=== PATIENT | female | born 1940 | race Caucasian/White ===

== ENCOUNTER 2017-04-15 08:01 | Emergency (ER) | payer OTHER, MEDICARE ==
[~2017-04-15] VITALS: Ht 154.9 cm; Wt 70.1 kg
[2017-04-15 08:01] VITALS: TEMP 98.2; Ht 154.9 cm; Wt 70.1 kg
[~2017-04-15 08:01] MED LIST: BISA-72 PO; CITA10TA49 PO; CYCL-375 PO; HALO1TAB PO; HYDR-4246 PO; LANS30CA50 PO; LINA145C PO; LISI-127 PO; POLY119P3 PO; SIMV10TA2 PO
--- OUTSIDE RECORDS SUMMARY | 2017-04-15 08:05 | XMS REPORT | Referral Summary ---
Author Author [facility] Organization [facility] Address Unknown Phone Unavailable Care Team Providers Care Arc Trimmer Name Role Phone Isabelle Jaffe Primary Care Physician [phone] Encounter VC Date(s): 04/08/15 - 04/08/15 [facility] [address] [place] [address] Discharge Disposition: 01-Home or Self Care Attending Physician: Juanjose Jaffe MD Admitting Physician: Juanjose Jaffe MD Vital Signs Most recent to 1 oldest [Reference Range]: Blood Pressure 128/60 mmHg [90-140/60-90 mmHg] (04/08/15 9:27 AM) Problem List Condition Effective Dates Status Health Status Informant Arthralgia Active TMJ(Confirmed) Benign essential Active hypertension(Confirm ed) Back pain, Active chronic(Confirmed) Chronic neck Active pain(Confirmed) Constipation(Confirm Active ed) Depression(Confirmed Active ) Lower urinary tract Active symptoms (LUTS)(Confirmed) Schizoaffective Active disorder(Confirmed) Stress Active incontinence(Confirm ed) TMJ Active syndrome(Confirmed) Allergies, Adverse Reactions, Alerts No Known Medication Allergies Medications CeleXA 20 mg oral tablet See Instructions, TAKE ONE TABLET BY MOUTH EVERY DAY, # 90 tabs, eRx: [facility] #[id number], TAKE ONE TABLET BY MOUTH EVERY DAY Start Date: 10/06/15 Status: Ordered cyclobenzaprine 10 mg oral tablet See Instructions, TAKE 1/2 TO 1 TABLET BY MOUTH EVERY 8 HOURS NEEDED, # 60 tabs, eRx: [facility] #[id number], TAKE 1/2 TO 1 TABLET BY MOUTH EVERY 8 HOURS NEEDED Start Date: 09/10/15 Status: Ordered Dulcolax Laxative 10 mg, Oral, Daily, as needed for constipation, 0 Refill(s) Start Date: 06/05/15 Status: Ordered haloperidol 1 mg oral tablet See Instructions, TAKE ONE TABLET BY MOUTH DAILY NEEDED, # 30 tabs, eRx: [facility] #[id number], TAKE ONE TABLET BY MOUTH DAILY NEEDED Start Date: 09/17/15 Status: Ordered lisinopril 10 mg oral tablet See Instructions, TAKE ONE TABLET BY MOUTH AT BEDTIME, # 90 tabs, 1 Refill(s), eRx: [facility] #[id number], TAKE ONE TABLET BY MOUTH AT BEDTIME Start Date: 06/06/15 Status: Ordered MiraLax oral powder for reconstitution See Instructions, DISSOLVE 17 GRAMS IN 8 OUNCES OF LIQUID AND DRINK ONCE DAILY, # 527 unknown unit, eRx: [facility] #[id number], DISSOLVE 17 GRAMS IN 8 OUNCES OF LIQUID AND DRINK ONCE DAILY Start Date: 08/29/15 Status: Ordered Mckee 5 mg-325 mg oral tablet 1-2 tabs, Oral, q8hr, MUST LAST 30 DAYS, # 60 tabs, 0 Refill(s) Start Date: 10/06/15 Status: Ordered Physical therapy Physical therapy, See Instructions, olesya and treat as indicated for back pain., # 1 Each, 0 Refill(s) Start Date: 01/29/15 Status: Ordered Zocor 10 mg oral tablet See Instructions, TAKE ONE TABLET BY MOUTH EVERY EVENING, # 90 tabs, eRx: [facility] #[id number], TAKE ONE TABLET BY MOUTH EVERY EVENING Start Date: 09/26/15 Status: Ordered Results No data available for this section Immunizations Vaccine Date Refusal Reason tetanus/diphth/pertuss (Tdap) adult/adol 06/05/15 pneumococcal 23-polyvalent vaccine 01/16/01 tetanus-diphth toxoids (Td) adult/adol 01/16/01 Procedures Procedure Date Related Diagnosis Body Site Calibration of urethra 06/30/15 Cystoscopy using panendoscope1 06/30/15 Urethral dilatation - female 06/30/15 Cataract extraction2012 Colonoscopy no adenomatous colon polyps 06/01/12 Arthroscopy of knee - right 04/10/08 Chondroplasty - right knee medial and lateral 04/10/08 compartments Excision of fragment of bone - anterior 04/10/08 superior medial eminence, right knee Meniscectomy of right knee - Partial lateral 04/10/08 Meniscectomy of right knee - partial medial 04/10/08 Hysterectomy 1979 1Hydrodistention of bladder, SLT laser. 2Bilateral eyes Social History Social History Type Response Smoking Status Former smoker; Type: Cigarettes Assessment and Plan Extracted from: Title: Ambulatory Patient Education Author: Juanjose Jaffe MD Date: Family Medicine Arterial Hypertension Arterial hypertension (high blood pressure ) is a condition of elevated pressure in your blood vessels. Hypertension over a long period of time is a risk factor for strokes, heart attacks, and heart failure. It is also the leading cause of kidney (renal ) failure. CAUSES In Adults -- Over 90% of all hypertension has no known cause. This is called essential or primary hypertension. In the other 10% of people with hypertension, the increase in blood pressure is caused by another disorder. This is called secondary hypertension . Important causes of secondary hypertension are: Heavy alcohol use. Obstructive sleep apnea. Hyperaldosterosim (Conn's syndrome). Steroid use. Chronic kidney failure. Hyperparathyroidism. Medications. Renal artery stenosis. Pheochromocytoma. Saint Elmo's disease. Coarctation of the aorta. Scleroderma renal crisis. Licorice (in excessive amounts). Drugs (cocaine, methamphetamine). Your caregiver can explain any items above that apply to you. In Children -- Secondary hypertension is more common and should always be considered. -- Few women of childbearing age have high blood pressure. However, up to 10% of them develop hypertension of . Generally, this will not harm the woman. It may be a sign of 3 complications of : preeclampsia, HELLP syndrome, and eclampsia. Follow up and control with medication is necessary. SYMPTOMS This condition normally does not produce any noticeable symptoms. It is usually found during a routine exam. Malignant hypertension is a late problem of high blood pressure. It may have the following symptoms: Headaches. Blurred vision. End-organ damage (this means your kidneys, heart, lungs, and other organs are being damaged). Stressful situations can increase the blood pressure. If a person with normal blood pressure has their blood pressure go up while being seen by their caregiver, this is often termed "white coat hypertension." Its importance is not known. It may be related with eventually developing hypertension or complications of hypertension. Hypertension is often confused with mental tension, stress, and anxiety. DIAGNOSIS The diagnosis is made by 3 separate blood pressure measurements. They are taken at least 1 week apart from each other. If there is organ damage from hypertension, the diagnosis may be made without repeat measurements. Hypertension is usually identified by having blood pressure readings: Above 140/90 mmHg measured in both arms, at 3 separate times, over a couple weeks. Over 130/80 mmHg should be considered a risk factor and may require treatment in patients with diabetes. Blood pressure readings over 120/80 mmHg are called "pre-hypertension" even in non-diabetic patients. To get a true blood pressure measurement, use the following guidelines. Be aware of the factors that can alter blood pressure readings. Take measurements at least 1 hour after caffeine. Take measurements 30 minutes after smoking and without any stress. This is another reason to quit smoking it raises your blood pressure. Use a proper cuff size. Ask your caregiver if you are not sure about your cuff size. Most home blood pressure cuffs are automatic. They will measure systolic and diastolic pressures. The systolic pressure is the pressure reading at the start of sounds. Diastolic pressure is the pressure at which the sounds disappear. If you are elderly, measure pressures in multiple postures. Try sitting, lying or standing. Sit at rest for a minimum of 5 minutes before taking measurements. You should not be on any medications like decongestants. These are found in many cold medications. Record your blood pressure readings and review them with your caregiver. If you have hypertension: Your caregiver may do tests to be sure you do not have secondary hypertension (see "causes" above). Your caregiver may also look for signs of metabolic syndrome. This is also called Syndrome X or Insulin Resistance Syndrome. You may have this syndrome if you have type 2 diabetes, abdominal obesity, and abnormal blood lipids in addition to hypertension. Your caregiver will take your medical and family history and perform a physical exam. Diagnostic tests may include blood tests (for glucose, cholesterol, potassium, and kidney function), a urinalysis, or an EKG. Other tests may also be necessary depending on your condition. PREVENTION There are important lifestyle issues that you can adopt to reduce your chance of developing hypertension: Maintain a normal weight. Limit the amount of salt (sodium ) in your diet. Exercise often. Limit alcohol intake. Get enough potassium in your diet. Discuss specific advice with your caregiver. Follow a DASH diet (dietary approaches to stop hypertension). This diet is rich in fruits, vegetables, and low-fat dairy products, and avoids certain fats. PROGNOSIS Essential hypertension cannot be cured. Lifestyle changes and medical treatment can lower blood pressure and reduce complications. The prognosis of secondary hypertension depends on the underlying cause. Many people whose hypertension is controlled with medicine or lifestyle changes can live a normal, healthy life. RISKS AND COMPLICATIONS While high blood pressure alone is not an illness, it often requires treatment due to its short- and long-term effects on many organs. Hypertension increases your risk for: CVAs or strokes (cerebrovascular accident ). Heart failure due to chronically high blood pressure (hypertensive cardiomyopathy ). Heart attack (myocardial infarction ). Damage to the retina (hypertensive retinopathy ). Kidney failure (hypertensive nephropathy ). Your caregiver can explain list items above that apply to you. Treatment of hypertension can significantly reduce the risk of complications. TREATMENT For overweight patients, weight loss and regular exercise are recommended. Physical fitness lowers blood pressure. Mild hypertension is usually treated with diet and exercise. A diet rich in fruits and vegetables, fat-free dairy products, and foods low in fat and salt (sodium ) can help lower blood pressure. Decreasing salt intake decreases blood pressure in a 1/3 of people. Stop smoking if you are a smoker. The steps above are highly effective in reducing blood pressure. While these actions are easy to suggest, they are difficult to achieve. Most patients with moderate or severe hypertension end up requiring medications to bring their blood pressure down to a normal level. There are several classes of medications for treatment. Blood pressure pills (antihypertensives ) will lower blood pressure by their different actions. Lowering the blood pressure by 10 mmHg may decrease the risk of complications by as much as 25%. The goal of treatment is effective blood pressure control. This will reduce your risk for complications. Your caregiver will help you determine the best treatment for you according to your lifestyle. What is excellent treatment for one person, may not be for you. HOME CARE INSTRUCTIONS Do not smoke. Follow the lifestyle changes outlined in the "Prevention" section. If you are on medications, follow the directions carefully. Blood pressure medications must be taken as prescribed. Skipping doses reduces their benefit. It also puts you at risk for problems. Follow up with your caregiver, as directed. If you are asked to monitor your blood pressure at home, follow the guidelines in the "Diagnosis" section above. SEEK MEDICAL CARE IF: You think you are having medication side effects. You have recurrent headaches or lightheadedness. You have swelling in your ankles. You have trouble with your vision. SEEK IMMEDIATE MEDICAL CARE IF: You have sudden onset of chest pain or pressure, difficulty breathing, or other symptoms of a heart attack. You have a severe headache. You have symptoms of a stroke (such as sudden weakness, difficulty speaking , difficulty walking). MAKE SURE YOU: Understand these instructions. Will watch your condition. Will get help right away if you are not doing well or get worse. Document Released: 11/07/2006 Document Revised: 01/29/2013 Document Reviewed: [facility] Patient Information 2014 [employer] [facility]. No follow up information was provided. Extracted from: Title: Office Visit Note Author: Juanjose Jaffe MD Date: 04/08/15 Assessment/Plan Acute URI Zpack and prednisone 20mg po daily for five days was given. Benign essential hypertension This issue is stable and appropriate refills, lab, and f/u have been discussed. The patient reports their blood pressure has been stable at home and is not having any significant or related problems. There has been no chest pain, chest pressure, soa/serrano. Cough Phenw/cod. May cause sedation. Depression This issue is stable and appropriate refills, lab, and f/u have been discussed. Resume consistent celexa. Schizoaffective disorder Resume haldol 1mg1/2 tab daily and call report. To PV if needed.
--- OUTSIDE RECORDS SUMMARY | 2017-04-15 08:05 | XMS REPORT | Referral Summary ---
Author Author [facility] Organization [facility] Address Unknown Phone Unavailable Care Team Providers Care Ion Implant Machine Operator Name Role Phone Isabelle Jaffe Primary Care Physician [phone] Encounter VC Date(s): 08/12/15 - 08/12/15 [facility] [address] [place] [address] [place] [id number] Discharge Diagnosis: Chronic trigonitis. Discharge Disposition: 01-Home or Self Care Attending Physician: Luis Angel Murillo JR, MD Admitting Physician: Luis Angel Murillo JR, MD Referring Physician: Juanjose Jaffe MD Vital Signs Most recent to 1 oldest [Reference Range]: Peripheral Pulse 80 bpm Rate [60-100 bpm] (08/12/15 1:38 PM) Blood Pressure 128/78 mmHg [90-140/60-90 mmHg] (08/12/15 1:38 PM) Problem List Condition Effective Dates Status Health Status Informant Arthralgia Active TMJ(Confirmed) Benign essential Active hypertension(Confirm ed) Back pain, Active chronic(Confirmed) Chronic kidney Active disease (CKD) stage G1/A1, glomerular filtration rate (GFR) equal to or greater than 90 mL/min/1.73 square meter and albuminuria creatinine ratio less than 30 mg/g(Confirmed) Chronic neck Active pain(Confirmed) Constipation(Confirm Active ed) Depression(Confirmed Active ) Lower urinary tract Active symptoms (LUTS)(Confirmed) Schizoaffective Active disorder(Confirmed) Stress Active incontinence(Confirm ed) TMJ Active syndrome(Confirmed) Allergies, Adverse Reactions, Alerts No Known Medication Allergies Medications CeleXA 20 mg oral tablet 20 mg 1 tabs, Oral, Daily, X 90 days, # 90 tabs, 1 Refill(s), Pharmacy: [facility] #[id number], 1 tabs Oral Daily,x90 days Start Date: 02/19/16 Stop Date: 08/17/16 Status: Ordered cyclobenzaprine 10 mg oral tablet See Instructions, TAKE 1/2 TO 1 TABLET BY MOUTH EVERY 8 HOURS NEEDED, # 60 tabs, 1 Refill(s), Pharmacy: [facility] #[id number], TAKE 1/2 TO 1 TABLET BY MOUTH EVERY 8 HOURS NEEDED Start Date: 02/19/16 Status: Ordered Dulcolax Laxative 10 mg, Oral, Daily, as needed for constipation, 0 Refill(s) Start Date: 06/05/15 Status: Ordered haloperidol 1 mg oral tablet See Instructions, TAKE ONE TABLET BY MOUTH DAILY NEEDED, # 30 tabs, eRx: [facility] #[id number], TAKE ONE TABLET BY MOUTH DAILY NEEDED Start Date: 02/19/16 Status: Ordered lisinopril 10 mg oral tablet See Instructions, TAKE ONE TABLET BY MOUTH AT BEDTIME, # 90 tabs, eRx: [facility] #[id number], TAKE ONE TABLET BY MOUTH AT BEDTIME Start Date: 12/30/15 Status: Ordered MiraLax oral powder for reconstitution See Instructions, DISSOLVE 17 GRAMS IN 8 OUNCES OF LIQUID AND DRINK ONCE DAILY, # 527 unknown unit, 2 Refill(s), eRx: [facility] #[id number], DISSOLVE 17 GRAMS IN 8 OUNCES OF LIQUID AND DRINK ONCE DAILY Start Date: 12/11/15 Status: Ordered [place] 5 mg-325 mg oral tablet 1-2 tabs, Oral, q8hr, MUST LAST 30 DAYS, may fill 02/20/16, # 60 tabs, 0 Refill(s) Start Date: 02/19/16 Status: Ordered Physical therapy Physical therapy, See Instructions, olesya and treat as indicated for back pain., # 1 Each, 0 Refill(s) Start Date: 01/29/15 Status: Ordered ranitidine 300 mg oral tablet 300 mg 1 tabs, Oral, Bedtime (once a day), # 90 tabs, 1 Refill(s), Pharmacy: [facility] #[id number], 1 tabs Oral Bedtime (once a day),x90 days Start Date: 02/19/16 Stop Date: 08/17/16 Status: Ordered Zocor 10 mg oral tablet 10 mg 1 tabs, Oral, Bedtime (once a day), X 90 days, # 90 tabs, 1 Refill(s), Pharmacy: [facility] #[id number], 1 tabs Oral Bedtime (once a day),x90 days Start Date: 02/19/16 Stop Date: 08/17/16 Status: Ordered Results No data available for [...] Extracted from: Title: Ambulatory Patient Education Author: Luis Angel Murillo JR, MD Date : 08/12/15 Follow Up With: Where: When: Juanjose Mcdanielaamirkaitlynn [address] [place] [address] Drive; [address] [place], [place] [id number] Business (1) Within 3 to 5 days Comments: Follow Up With: Where: When: Luis Angel K[address]; [address] [place], [place] [id number] Business (1) In 3 months 11/11/2015 Comments: Extracted from: Title: Office Visit Note Author: Luis Angel Murillo JR, MD Date: 08/12/15 Assessment/Plan Chronic trigonitis. responding very well to the urethral dilatation, and SLT laser vaporization chronic diffuse trigonitis. With regards to the cystocele, the patient will be referred to see Dr. Rekha Gutierres sfdc consultant. I would like to see her again in 3 months. Continue doing Kegel's pelvic floor exercises. Ordered: Office Visit Level 3 Est [id number]
--- OUTSIDE RECORDS SUMMARY | 2017-04-15 08:05 | XMS REPORT | Referral Summary ---
Author Author [facility] Organization [facility] Address Unknown Phone Unavailable Care Team Providers Care Outcomes Manager Name Role Phone Isabelle Jaffe Primary Care Physician [phone] Encounter VC Date(s): 06/30/15 - 06/30/15 [facility] [address] [place] [address] [place] [id number]- Discharge Disposition: 01-Home or Self Care Attending Physician: Luis Angel Murillo JR, MD Admitting Physician: Luis Angel Murillo JR, MD Vital Signs No data available for this section Problem List Condition Effective Dates Status Health [...] MOUTH EVERY DAY, # 90 tabs, eRx: [facility] #[id number], TAKE ONE TABLET BY MOUTH EVERY DAY Start Date: 10/06/15 Status: Ordered cyclobenzaprine 10 mg oral tablet See Instructions, TAKE 1/2 TO 1 TABLET BY MOUTH EVERY 8 HOURS NEEDED, # 60 tabs, eRx: [facility] #[id number], TAKE 1/2 TO 1 TABLET BY MOUTH EVERY 8 HOURS NEEDED Start Date: 01/06/16 Status: Ordered Dulcolax Laxative 10 mg, Oral, Daily, as needed for constipation, 0 Refill(s) Start Date: 06/05/15 Status: Ordered haloperidol 1 mg oral tablet See Instructions, TAKE ONE TABLET BY MOUTH DAILY NEEDED, # 30 tabs, eRx: [facility] #[id number], TAKE ONE TABLET BY MOUTH DAILY NEEDED Start Date: 11/19/15 Status: Ordered haloperidol 1 mg oral tablet See Instructions, TAKE ONE TABLET BY MOUTH DAILY NEEDED, # 30 tabs, eRx: [facility] #[id number], TAKE ONE TABLET BY MOUTH DAILY NEEDED Start Date: 12/15/15 Status: Ordered lisinopril 10 mg oral tablet See Instructions, TAKE ONE TABLET BY MOUTH AT BEDTIME, # 90 tabs, eRx: [facility] #[id number], TAKE ONE TABLET BY MOUTH AT BEDTIME Start Date: 12/30/15 Status: Ordered MiraLax oral powder for reconstitution See Instructions, DISSOLVE 17 GRAMS IN 8 OUNCES OF LIQUID AND DRINK ONCE DAILY, # 527 unknown unit, 2 Refill(s), eRx: [facility] #[id number], DISSOLVE 17 GRAMS IN 8 OUNCES OF LIQUID AND DRINK ONCE DAILY Start Date: 12/11/15 Status: Ordered [place] 5 mg-325 mg oral tablet 1-2 tabs, Oral, q8hr, MUST LAST 30 DAYS CAN BE REFILLED ON 12/20/15, # 60 tabs, 0 Refill(s) Start Date: 12/17/15 Status: Ordered Physical therapy Physical therapy, See Instructions, olesya and treat as indicated for back pain., # 1 Each, 0 Refill(s) Start Date: 01/29/15 Status: Ordered Zocor 10 mg oral tablet See Instructions, TAKE ONE TABLET BY MOUTH EVERY EVENING, # 90 tabs, eRx: [facility] #[id number], TAKE ONE TABLET BY MOUTH EVERY EVENING Start Date: 01/06/16 Status: Ordered Results No data available for this section Immunizations Vaccine Date Refusal Reason tetanus/diphth/pertuss (Tdap) adult/adol 06/05/15 pneumococcal 23-polyvalent vaccine 01/16/01 tetanus-diphth toxoids (Td) adult/adol 01/16/01 Procedures Procedure Date Related Diagnosis Body Site Calibration of urethra 06/30/15 Cystoscopy using panendoscope1 06/30/15 Cystourethroscopy, with dilation of bladder 06/30/15 for interstitial cystitis; local anesthesia.. Cystourethroscopy, with fulguration 06/30/15 (including cryosurgery or laser surgery) of trigone, bladder neck, prostatic fossa, urethra, or periurethral glands Urethral dilatation - female 06/30/15 Cataract extraction2 2012 Colonoscopy no adenomatous colon polyps 06/01/12 Arthroscopy [...] Former smoker; Type: Cigarettes Assessment and Plan No data available for this section
--- OUTSIDE RECORDS SUMMARY | 2017-04-15 08:05 | XMS REPORT | Referral Summary ---
Author Author [facility] Organization [facility] Address Unknown Phone Unavailable Care Team Providers Care Sap Solution Manager Consultant Name Role Phone Isabelle Jaffe Primary Care Physician [phone] Encounter VC Date(s): 04/21/15 - 04/21/15 [facility], [address] [place] [address]- Discharge Disposition: 01-Home or Self Care Attending Physician: Juanjose Jaffe MD Admitting Physician: Juanjose Jaffe MD Vital Signs Most recent to 1 oldest [Reference Range]: Blood Pressure 120/70 mmHg [90-140/60-90 mmHg] (04/21/15 2:30 PM) Problem List Condition Effective Dates Status [...] MOUTH EVERY DAY, # 90 tabs, eRx: [facility] #[id number], TAKE ONE TABLET BY MOUTH EVERY DAY Start Date: 10/06/15 Status: Ordered cyclobenzaprine 10 mg oral tablet See Instructions, TAKE 1/2 TO 1 TABLET BY MOUTH EVERY 8 HOURS NEEDED, # 60 tabs, eRx: [facility] #[id number], TAKE 1/2 TO 1 TABLET BY MOUTH EVERY 8 HOURS NEEDED Start Date: 09/10/15 Status: Ordered Dulcolax Laxative 10 mg, Oral, Daily, as needed for constipation, 0 Refill(s) Start Date: 06/05/15 Status: Ordered haloperidol 1 mg oral tablet See Instructions, TAKE ONE TABLET BY MOUTH DAILY NEEDED, # 30 tabs, eRx: [facility] #[id number], TAKE ONE TABLET BY MOUTH DAILY NEEDED Start Date: 10/21/15 Status: Ordered lisinopril 10 mg oral tablet See Instructions, TAKE ONE TABLET BY MOUTH AT BEDTIME, # 90 tabs, 1 Refill(s), eRx: [facility] #[id number], TAKE ONE TABLET BY MOUTH AT BEDTIME Start Date: 06/06/15 Status: Ordered MiraLax oral powder for reconstitution See Instructions, DISSOLVE 17 GRAMS IN 8 OUNCES OF LIQUID AND DRINK ONCE DAILY, # 527 unknown unit, eRx: [facility] #[id number], DISSOLVE 17 GRAMS IN 8 OUNCES OF LIQUID AND DRINK ONCE DAILY Start Date: 10/29/15 Status: Ordered [place] 5 mg-325 mg oral tablet 1-2 tabs, [...] MOUTH EVERY EVENING, # 90 tabs, eRx: [facility] #[id number], TAKE ONE TABLET BY MOUTH EVERY EVENING [...] Patient Education Author: Juanjose Jaffe MD Date: 04/21/15 Family Medicine Arterial Hypertension Arterial hypertension (high [...] failure. Hyperparathyroidism. Medications. Renal artery stenosis. Pheochromocytoma. Antionette's disease. Coarctation of the aorta. Scleroderma renal [...] Released: 11/07/2006 Document Revised: 01/29/2013 Document Reviewed: ExitCare Patient Information 2014 [employer] [facility]. No follow up information was provided. Extracted from: Title: Office Visit Note Author: Juanjose Jaffe MD Date: 04/21/15 Assessment/Plan Acute URI Amox 500mg po tid for ten days. Has cough meds left. Benign essential hypertension This issue is stable and appropriate refills, lab, and f/u have been discussed. The patient reports their blood pressure has been stable at home and is not having any significant or related problems. There has been no chest pain, chest pressure, soa/serrano. Chronic neck pain This issue is stable and appropriate refills, lab, and f/u have been discussed. [place] refilled. Constipation This issue is stable and appropriate refills, lab, and f/u have been discussed. On linzess. Cough The patient's issue is nearly or completely resolved. There is no further issues or testing desired by them at this time. Depression This issue is stable and appropriate refills, lab, and f/u have been discussed. Schizoaffective disorder This issue is stable and appropriate refills, lab, and f/u have been discussed. Resume haldol 1 mg 1/2 tab po bid. She has been out for one week. Orders: haloperidol, 1 mg 1 tabs, Oral, Daily, as needed for anxiety, # 30 tabs, 0 Refill(s), Pharmacy: [facility] #[id number], 1 tabs Oral Daily,PRN:as needed for anxiety HYDROcodone-acetaminophen, 1-2 tabs, Oral, q8hr, MUST LAST 30 DAYS, # 60 tabs , 0 Refill(s)
--- OUTSIDE RECORDS SUMMARY | 2017-04-15 08:05 | XMS REPORT | Referral Summary ---
Author Author [facility] Organization [facility] Address Unknown Phone Unavailable Care Team Providers Care Warehouse Order Selector Name Role Phone Isabelle Jaffe Primary Care Physician [phone] Encounter Date(s): 06/05/15 - 06/05/15 [facility], [address] [place] [id number] Discharge Diagnosis: Need for timocxwiqv-ufmgnbk-lpdaptzeb (Tdap) vaccine, adult /adolescent Discharge Diagnosis: Finger pain, left Discharge Disposition: 01-Home or Self Care Attending Physician: Juanjose Jaffe MD Admitting Physician: Juanjose Jaffe MD Vital Signs Most recent to 1 oldest [Reference Range]: Blood Pressure 114/62 mmHg [90-140/60-90 mmHg] (06/05/15 2:57 PM) Problem List Condition Effective Dates Status [...] MOUTH EVERY DAY, # 90 tabs, eRx: [facility] #[id number], TAKE ONE TABLET BY MOUTH EVERY DAY Start Date: 10/06/15 Status: Ordered cyclobenzaprine 10 mg oral tablet See Instructions, TAKE 1/2 TO 1 TABLET BY MOUTH EVERY 8 HOURS NEEDED, # 60 tabs, eRx: [facility] #[id number], TAKE 1/2 TO 1 TABLET BY MOUTH EVERY 8 HOURS NEEDED Start Date: 11/11/15 Status: Ordered Dulcolax Laxative 10 mg, Oral, Daily, as needed for constipation, 0 Refill(s) Start Date: 06/05/15 Status: Ordered haloperidol 1 mg oral tablet See Instructions, TAKE ONE TABLET BY MOUTH DAILY NEEDED, # 30 tabs, eRx: [facility] #[id number], TAKE ONE TABLET BY MOUTH DAILY NEEDED Start Date: 11/19/15 Status: Ordered haloperidol 1 mg oral tablet See Instructions, TAKE ONE TABLET BY MOUTH DAILY NEEDED, # 30 tabs, eRx: [facility] #[id number], TAKE ONE TABLET BY MOUTH DAILY NEEDED Start Date: 12/15/15 Status: Ordered lisinopril 10 mg oral tablet See Instructions, TAKE ONE TABLET BY MOUTH AT BEDTIME, # 90 tabs, 1 Refill(s), eRx: [facility] #[id number], TAKE ONE TABLET BY MOUTH AT BEDTIME Start Date: 06/06/15 Status: Ordered MiraLax oral powder for reconstitution See Instructions, DISSOLVE 17 GRAMS IN 8 OUNCES OF LIQUID AND DRINK ONCE DAILY, # 527 unknown unit, 2 Refill(s), eRx: [facility] #[id number], DISSOLVE 17 GRAMS IN 8 OUNCES OF LIQUID AND DRINK ONCE DAILY Start Date: 12/11/15 Status: Ordered [place] 5 mg-325 mg oral tablet 1-2 tabs, Oral, q8hr, MUST LAST 30 DAYS, # 60 tabs, 0 Refill(s) Start Date: 11/19/15 Status: Ordered Physical therapy Physical therapy, See Instructions, olesya and treat as indicated for back pain., # 1 Each, 0 Refill(s) Start Date: 01/29/15 Status: Ordered Zocor 10 mg oral tablet See Instructions, TAKE ONE TABLET BY MOUTH EVERY EVENING, # 90 tabs, eRx: [facility] #[id number], TAKE ONE TABLET BY MOUTH EVERY EVENING Start Date: 09/26/15 Status: Ordered Results No data available for this section Immunizations Vaccine Date Refusal Reason tetanus/diphth/pertuss (Tdap) adult/adol 06/05/15 pneumococcal 23-polyvalent vaccine 01/16/01 tetanus-diphth toxoids (Td) adult/adol 01/16/01 Procedures Procedure Date Related Diagnosis Body Site Calibration of urethra 06/30/15 Cystoscopy using panendoscope1 06/30/15 Urethral dilatation - female 06/30/15 Cataract extraction2 2012 Colonoscopy no adenomatous colon polyps 06/01/12 Arthroscopy of knee - right 04/10/08 Chondroplasty - right knee medial and lateral 04/10/08 compartments Excision of fragment of bone - anterior 04/10/08 superior medial eminence, right knee Meniscectomy of right knee - Partial lateral 04/10/08 Meniscectomy of right knee - partial medial 04/10/08 Hysterectomy 1980 1Hydrodistention of bladder, SLT laser. 2Bilateral eyes Social History Social History Type Response Smoking Status Former smoker; Type: Cigarettes Assessment and Plan Extracted from: Title: Ambulatory Patient Education Author: Juanjose Jaffe MD Date: Family Medicine Cellulitis Cellulitis is an infection of the skin and the tissue beneath it. The infected area is usually red and tender. Cellulitis occurs most often in the arms and lower legs. CAUSES Cellulitis is caused by bacteria that enter the skin through cracks or cuts in the skin. The most common types of bacteria that cause cellulitis are Staphylococcus and Streptococcus. SYMPTOMS Redness and warmth. Swelling. Tenderness or pain. Fever. DIAGNOSIS Your caregiver can usually determine what is wrong based on a physical exam. Blood tests may also be done. TREATMENT Treatment usually involves taking an antibiotic medicine. HOME CARE INSTRUCTIONS Take your antibiotics as directed. Finish them even if you start to feel better. Keep the infected arm or leg elevated to reduce swelling. Apply a warm cloth to the affected area up to 4 times per day to relieve pain. Only take ijvu-kfq-haaavgj or prescription medicines for pain, discomfort, or fever as directed by your caregiver. Keep all follow-up appointments as directed by your caregiver. SEEK MEDICAL CARE IF: You notice red streaks coming from the infected area. Your red area gets larger or turns dark in color. Your bone or joint underneath the infected area becomes painful after the skin has healed. Your infection returns in the same area or another area. You notice a swollen bump in the infected area. You develop new symptoms. SEEK IMMEDIATE MEDICAL CARE IF: You have a fever. You feel very sleepy. You develop vomiting or diarrhea. You have a general ill feeling (malaise ) with muscle aches and pains. MAKE SURE YOU: Understand these instructions. Will watch your condition. Will get help right away if you are not doing well or get worse. Document Released: 08/17/2006 Document Revised: 05/08/2013 Document Reviewed: ExitCare Patient Information 2014 [employer] [facility]. No follow up information was provided. Extracted from: Title: Office Visit Note Author: Juanjose Jaffe MD Date: 06/05/15 Assessment/Plan Abnormality of urethral meatus To Dr. SERRANO/SAEED for evaluation. Benign essential hypertension This issue is stable and appropriate refills, lab, and f/u have been discussed. The patient reports their blood pressure has been stable at home and is not having any significant or related problems. There has been no chest pain, chest pressure, soa/serrano. Cellulitis Keflex 500mg po qid for ten days. Tdap pending. Chronic neck pain This issue is stable and appropriate refills, lab, and f/u have been discussed. Crush injury to finger Xray pending. Possible referral to ortho or wound care. Finger pain, left See above. Routine wound care for now. Ordered: XR Hand Complete Left Need for zpxibirnyf-kivvgzc-gvcprhkky (Tdap) vaccine, adult/adolescent See above. Ordered: tetanus/diphth/pertuss (Tdap) adult/adol, 0.5 mL, IntraMuscular, Once, First Dose: 06/05/15 16:00:00 CDT, Stop Date: 06/05/15 16:00:00 CDT, Form: Syringe Pilonidal cyst To Dr. CHEN/Dr. TIPTON for evaluation. Schizoaffective disorder This issue is stable and appropriate refills, lab, and f/u have been discussed. Orders: cephalexin, 500 mg 1 caps, Oral, QID, X 10 days, # 40 caps, 0 Refill(s ), Pharmacy: [facility] #[id number], 1 caps Oral QID,x10 days
--- OUTSIDE RECORDS SUMMARY | 2017-04-15 08:05 | XMS REPORT | Referral Summary ---
Author Author [facility] Organization [facility] Address Unknown Phone Unavailable Care Team Providers Care Shell Assembler Name Role Phone Isabelle Jaffe Primary Care Physician [phone] Encounter VC Date(s): 02/19/16 - 02/19/16 [facility] [address] [place] [id number] Discharge Disposition: 01-Home or Self Care Attending Physician: Juanjose Jaffe MD Admitting Physician: Juanjose Jaffe MD Vital Signs Most recent to 1 oldest [Reference Range]: Blood Pressure 120/70 mmHg [90-140/60-90 mmHg] (02/19/16 9:02 AM) Problem List Condition Effective Dates Status [...] days, # 90 tabs, 1 Refill(s), Pharmacy: [facility] #[id number], 1 tabs Oral Daily,x90 days Start Date: 02/19/16 Stop Date: 08/17/16 Status: Ordered cyclobenzaprine 10 mg oral tablet See Instructions, TAKE 1/2 TO 1 TABLET BY MOUTH EVERY 8 HOURS NEEDED, # 60 tabs, 1 Refill(s), Pharmacy: [facility] #[id number], TAKE 1/2 TO 1 TABLET BY MOUTH EVERY 8 HOURS NEEDED Start Date: 02/19/16 Status: Ordered Dulcolax Laxative 10 mg, Oral, Daily, as needed for constipation, 0 Refill(s) Start Date: 06/05/15 Status: Ordered haloperidol 1 mg oral tablet See Instructions, TAKE ONE TABLET BY MOUTH DAILY NEEDED, # 30 tabs, eRx: [facility] #[id number], TAKE ONE TABLET BY MOUTH DAILY NEEDED Start Date: 02/19/16 Status: Ordered lisinopril 10 mg oral tablet See Instructions, TAKE ONE TABLET BY MOUTH AT BEDTIME, # 90 tabs, eRx: [facility] #[id number], TAKE ONE TABLET BY MOUTH AT BEDTIME Start Date: 12/30/15 Status: Ordered MiraLax oral powder for reconstitution See Instructions, DISSOLVE 17 GRAMS IN 8 OUNCES OF LIQUID AND DRINK ONCE DAILY, # 527 unknown unit, 2 Refill(s), eRx: [facility] #[id number], DISSOLVE 17 GRAMS IN 8 OUNCES OF LIQUID AND DRINK ONCE DAILY Start Date: 12/11/15 Status: Ordered [place] 5 mg-325 mg oral tablet 1-2 tabs, [...] day), # 90 tabs, 1 Refill(s), Pharmacy: [facility] #[id number], 1 tabs Oral Bedtime (once a day),x90 days Start Date: 02/19/16 Stop Date: 08/17/16 Status: Ordered Zocor 10 mg oral tablet 10 mg 1 tabs, Oral, Bedtime (once a day), X 90 days, # 90 tabs, 1 Refill(s), Pharmacy: [facility] #[id number], 1 tabs Oral Bedtime (once a day),x90 days Start Date: 02/19/16 Stop Date: 08/17/16 Status: Ordered Results Hematology Most recent to 1 oldest [Reference Range]: WBC [4.8-10.8 8.8 10*3/uL 10*3/uL] (02/19/16 9:33 AM) RBC [4.00-5.20] 4.75 (02/19/16 9:33 AM) Hgb [12.0-16.0 14.1 gm/dL gm/dL] (02/19/16 9:33 AM) Hct [37.0-47.0 %] 42.9 % (02/19/16 9:33 AM) MCV [82.0-99.0 fL] 90.3 fL (02/19/16 9:33 AM) MCH [27.0-32.0 pg] 29.7 pg (02/19/16 9:33 AM) MCHC [32.0-36.0 32.9 gm/dL gm/dL] (02/19/16 9:33 AM) RDW [11.5-14.5 %] 13.3 % (02/19/16 9:33 AM) Platelet [150-400 373 10*3/uL 10*3/uL] (02/19/16 9:33 AM) MPV [8.8-14.8 fL] 9.1 fL (02/19/16 9:33 AM) Immature 0.5 % Granulocytes (02/19/16 9:33 AM) [0.0-1.0 %] Neutrophils [51-75 53 % %] (02/19/16 9:33 AM) Lymphocytes [20-46 28 % %] (02/19/16 9:33 AM) Monocytes [4-11 %] 13 % *HI* (02/19/16 9:33 AM) Eosinophils [0-4 %] 6 % *HI* (02/19/16 9:33 AM) Basophils [0-2 %] 1 % (02/19/16 9:33 AM) Neutro Absolute 4.63 10*3 [1.90-7.00 10*3] (02/19/16 9:33 AM) Lymph Absolute 2.41 10*3 [0.80-3.30 10*3] (02/19/16 9:33 AM) [place] Absolute 1.16 10*3 [0.30-1.00 10*3] *HI* (02/19/16 9:33 AM) Eos Absolute 0.48 10*3 [0.00-0.50 10*3] (02/19/16 9:33 AM) Baso Absolute 0.04 10*3 [0.00-0.20 10*3] (02/19/16 9:33 AM) Chemistry Most recent to 1 oldest [Reference Range]: Sodium Lvl [135-144 139 mEq/L mEq/L] (02/19/16 9:33 AM) Potassium Lvl 4.6 mEq/L [3.5-5.2 mEq/L] (02/19/16 9:33 AM) Chloride [99-111 106 mEq/L mEq/L] (02/19/16 9:33 AM) CO2 [22-31 mEq/L] 26 mEq/L (02/19/16:33 AM) AGAP [3-20] 7 (02/19/16:33 AM) BUN [10-20 mg/dL] 18 mg/dL (02/19/16 9:33 AM) Glucose Lvl [70-99 83 mg/dL mg/dL] (02/19/16 9:33 AM) Creatinine Lvl 0.79 mg/dL [0.57-1.11 mg/dL] (02/19/16 9:33 AM) eGFR [>60 mL/min] >60 mL/min 1 (02/19/16:33 AM) Calcium Lvl 9.4 mg/dL [8.9-10.5 mg/dL] (02/19/16 9:33 AM) Albumin Lvl [3.4-4.8 4.2 gm/dL gm/dL] (02/19/16 9:33 AM) Total Protein 6.8 gm/dL [6.2-8.1 gm/dL] (02/19/16 9:33 AM) Globulin [1.8-4.0 2.6 gm/dL gm/dL] (02/19/16 9:33 AM) ALT [0-55 U/L] 18 U/L (02/19/16 9:33 AM) AST [5-34 U/L] 19 U/L (02/19/16 9:33 AM) Alk Phos [40-150 122 U/L U/L] (02/19/16 9:33 AM) Bili Total [0.2-1.2 0.3 mg/dL mg/dL] (02/19/16 9:33 AM) Chol [0-199 mg/dL] 160 mg/dL (02/19/16 9:33 AM) Trig [0-149 mg/dL] 324 mg/dL *HI* (02/19/16 9:33 AM) HDL [40-84 mg/dL] 37 mg/dL *LOW* (02/19/16 9:33 AM) LDL [0-130 mg/dL] 58 mg/dL (02/19/16 9:33 AM) VLDL Cholesterol 65 mg/dL [0-28 mg/dL] *HI* (02/19/16 9:33 AM) Cardiac Risk 4.3 [0.0-5.0] (02/19/16 9:33 AM) TSH with Reflex Free 0.95 T4 [0.35-4.94] (02/19/16 9:33 AM) 1Result Comment: Multiply eGFR results by 1.21 for race. Urinalysis Most recent to 1 oldest [Reference Range]: UA Color Yellow (02/19/16 9:45 AM) UA Appear Cloudy *ABN* (02/19/16 9:45 AM) UA pH [5.0-8.0] 5.5 (02/19/16 9:45 AM) UA Leuk Est Negative [Negative] (02/19/16 9:45 AM) UA Nitrite Negative [Negative] (02/19/16 9:45 AM) UA Protein Negative [Negative] (02/19/16 9:45 AM) UA Glucose Negative [Negative] (02/19/16 9:45 AM) UA Ketones Negative [Negative] (02/19/16 9:45 AM) UA Urobilinogen 0.2 mg/dL [<1.0 mg/dL] (02/19/16 9:45 AM) UA Bili [Negative] Negative (02/19/16 9:45 AM) UA Blood [Negative] Negative (02/19/16 9:45 AM) UA Spec Grav 1.019 [1.003-1.030] (02/19/16 9:45 AM) Type Voided (02/19/16 9:45 AM) Immunizations Vaccine Date Refusal Reason tetanus/diphth/pertuss (Tdap) [...] Author: Juanjose Jaffe MD Date: Family Medicine Back Exercises Back exercises help treat and prevent back injuries. The goal of back exercises is to increase the strength of your abdominal and back muscles and the flexibility of your back. These exercises should be started when you no longer have back pain. Back exercises include: Pelvic Tilt. Lie on your back with your knees bent. Tilt your pelvis until the lower part of your back is against the floor. Hold this position 5 to 10 sec and repeat 5 to 10 times. Knee to Chest. Pull first 1 knee up against your chest and hold for 20 to 30 seconds, repeat this with the other knee, and then both knees. This may be done with the other leg straight or bent, whichever feels better. Sit-Ups or Curl-Ups. Bend your knees 90 degrees. Start with tilting your pelvis, and do a partial, slow sit-up, lifting your trunk only 30 to 45 degrees off the floor. Take at least 2 to 3 seconds for each sit-up. Do not do sit-ups with your knees out straight. If partial sit-ups are difficult, simply do the above but with only tightening your abdominal muscles and holding it as directed. Hip-Lift. Lie on your back with your knees flexed 90 degrees. Push down with your feet and shoulders as you raise your hips a couple inches off the floor; hold for 10 seconds, repeat 5 to 10 times. Back arches. Lie on your stomach, propping yourself up on bent elbows. Slowly press on your hands, causing an arch in your low back. Repeat 3 to 5 times. Any initial stiffness and discomfort should lessen with repetition over time. Shoulder-Lifts. Lie face down with arms beside your body. Keep hips and torso pressed to floor as you slowly lift your head and shoulders off the floor. Do not overdo your exercises, especially in the beginning. Exercises may cause you some mild back discomfort which lasts for a few minutes; however, if the pain is more severe, or lasts for more than 15 minutes, do not continue exercises until you see your caregiver. Improvement with exercise therapy for back problems is slow. See your caregivers for assistance with developing a proper back exercise program. This information is not intended to replace advice given to you by your health care provider. Make sure you discuss any questions you have with your health care provider. Document Released: 12/15/2005 Document Revised: 01/29/2013 Document Reviewed: ExitCare Patient Information 2015 [employer]. No follow up information was provided. Extracted from: Title: Office Visit Note Author: Juanjose Jaffe MD Date: 02/19/16 Assessment/Plan Back pain, chronic This issue was reviewed, appears stable, and current therapy continued except as mentioned. Appropriate lab was reviewed from the most recent appropriate entry and lab was ordered if needed in the cpoe/nursing orders, and follow up recommended generally in 90 days and no later then six months. Gerald refilled. Must honor the narcotic contract. Benign essential hypertension This issue was reviewed, appears stable, and current therapy continued except as mentioned. Appropriate lab was reviewed from the most recent appropriate entry and lab was ordered if needed in the cpoe /nursing orders, and follow up recommended generally in 90 days and no later then six months. The patient reports their blood pressure has been stable at home and is not having any significant or related problems. There has been no chest pain, chest pressure, soa/serrano. Ordered: CBC w/ Differential Comprehensive Metabolic Panel TSH with Reflex Free T4 Urinalysis with Culture if Indicated Chronic kidney disease (CKD) stage G1/A1, glomerular filtration rate (GFR) equal to or greater than 90 mL/min/1.73 square meter and albuminuria creatinine ratio less than 30 mg/g This issue was reviewed, appears stable, and current therapy continued except as mentioned. Appropriate lab was reviewed from the most recent appropriate entry and lab was ordered if needed in the cpoe/nursing orders, and follow up recommended generally in 90 days and no later then six months. No nsaids. Chronic neck pain This issue was reviewed, appears stable, and current therapy continued except as mentioned. Appropriate lab was reviewed from the most recent appropriate entry and lab was ordered if needed in the cpoe/nursing orders, and follow up recommended generally in 90 days and no later then six months. See above. Has norco. Constipation The patient's issue is nearly or completely resolved. There is no further issues or testing desired by them at this time. Schizoaffective disorder This issue was reviewed, appears stable, and current therapy continued except as mentioned. Appropriate lab was reviewed from the most recent appropriate entry and lab was ordered if needed in the cpoe/nursing orders, and follow up recommended generally in 90 days and no later then six months. Doing well on haldol. Orders: citalopram, 20 mg 1 tabs, Oral, Daily, X 90 days, # 90 tabs, 1 Refill( s), Pharmacy: [facility] #[id number], 1 tabs Oral Daily,x90 days cyclobenzaprine, See Instructions, TAKE 1/2 TO 1 TABLET BY MOUTH EVERY 8 HOURS NEEDED, # 60 tabs, 1 Refill(s), Pharmacy: [facility] #[id number], TAKE 1/2 TO 1 TABLET BY MOUTH EVERY 8 HOURS NEEDED haloperidol, See Instructions, TAKE ONE TABLET BY MOUTH DAILY NEEDED, # 30 tabs, 1 Refill(s), Pharmacy: [facility] #[id number], TAKE ONE TABLET BY MOUTH DAILY NEEDED HYDROcodone-acetaminophen, 1-2 tabs, Oral, q8hr, MUST LAST 30 DAYS, may fill , # 60 tabs, 0 Refill(s) ranitidine, 300 mg 1 tabs, Oral, Bedtime (once a day), # 90 tabs, 1 Refill(s) , Pharmacy: [facility] #[id number], 1 tabs Oral Bedtime (once a day),x90 days simvastatin, 10 mg 1 tabs, Oral, Bedtime (once a day), X 90 days, # 90 tabs, 1 Refill(s), Pharmacy: [facility] #[id number], 1 tabs Oral Bedtime (once a day ),x90 days Lipid Panel
--- OUTSIDE RECORDS SUMMARY | 2017-04-15 08:05 | XMS REPORT | Referral Summary ---
Author Organization Unknown Address Unknown Phone Unavailable Care Team Providers Care Voice Professor Name Role Phone Isabelle Jaffe Primary Care Physician [phone] Encounter VC Date(s): 01/29/15 - 01/29/15 Via CAR[facility] Casillas, Juan, Family [address] [place] [address]- Discharge Diagnosis: Onychomycosis Discharge Diagnosis: Hyperlipidemia Discharge Diagnosis: Chronic neck pain Discharge Diagnosis: Schizoaffective disorder Discharge Diagnosis: Back pain, chronic Discharge Diagnosis: Depression Discharge Diagnosis: Benign essential HTN Discharge Diagnosis: Constipation Discharge Disposition: Home or Self Care Attending Physician: Juanjose Jaffe MD Admitting Physician: Juanjose Jaffe MD Vital Signs Most recent to 1 oldest [Reference Range]: Blood Pressure 140/60 mmHg [90-140/60-90 mmHg] (01/29/15 9:50 AM) Problem List Condition Effective Dates Status Health Status Informant Arthralgia Active TMJ(Confirmed) Back pain, Active chronic(Confirmed) Chronic neck Active pain(Confirmed) Constipation(Confirm Active ed) Depression(Confirmed Active ) Schizoaffective Active disorder(Confirmed) Stress Active incontinence(Confirm ed) TMJ Active syndrome(Confirmed) Allergies, Adverse Reactions, Alerts No Known Medication Allergies Medications aspirin 81 mg oral tablet, chewable 1 tabs, Oral, Daily Start Date: 09/12/14 Status: Ordered bisacodyl 5 mg oral delayed release tablet 1 tabs, Oral, Daily, as needed for constipation, X 90 days, # 90 tabs, 1 Refill( s), Pharmacy: [facility] #[id number], 1 tabs Oral Daily,x90 days,PRN:as needed for constipation Start Date: 11/01/14 Stop Date: 04/30/15 Status: Ordered CeleXA 20 mg oral tablet See Instructions, TAKE ONE TABLET BY MOUTH EVERY DAY, # 90 tabs, 1 Refill(s), eRx: [facility] #[id number], TAKE ONE TABLET BY MOUTH EVERY DAY Special Instructions: TAKE ONE TABLET BY MOUTH EVERY DAY Start Date: 11/26/14 Status: Ordered cyclobenzaprine 10 mg oral tablet See Instructions, TAKE 1/2 TO 1 TABLET BY MOUTH EVERY 8 HOURS NEEDED, # 60 tabs, 0 Refill(s), Pharmacy: [facility] #[id number], TAKE 1/2 TO 1 TABLET BY MOUTH EVERY 8 HOURS NEEDED Special Instructions: TAKE 1/2 TO 1 TABLET BY MOUTH EVERY 8 HOURS NEEDED Start Date: 01/29/15 Stop Date: 03/31/15 Status: Ordered Linzess 145 mcg oral capsule 1 caps, Oral, Daily, # 30 caps, 0 Refill(s), samples given to patient (Rx) Start Date: 12/12/14 Status: Ordered lisinopril 10 mg oral tablet See Instructions, TAKE ONE TABLET BY MOUTH AT BEDTIME, # 90 tabs, eRx: [facility] #[id number], TAKE ONE TABLET BY MOUTH AT BEDTIME Special Instructions: TAKE ONE TABLET BY MOUTH AT BEDTIME Start Date: 08/19/14 Status: Ordered [place] 5 mg-325 mg oral tablet 1 tabs, Oral, q8hr, as needed for pain, # 60 tabs, 0 Refill(s) Start Date: 11/01/14 Status: Ordered [place] 5 mg-325 mg oral tablet 1-2 tabs, Oral, q8hr, MUST LAST 30 DAYS - MUST HAVE APPT PRIOR TO ADDITIONAL REFILLS - [facility], # 60 tabs, 0 Refill(s) Special Instructions: MUST LAST 30 DAYS - MUST HAVE APPT PRIOR TO ADDITIONAL REFILLS - [facility] Start Date: 08/19/14 Status: Ordered [place] 5 mg-325 mg oral tablet 1 tabs, Oral, q8hr, Number dispensed increased to 90 today. Karlee, # 90 tabs, 0 Refill(s) Special Instructions: Number dispensed increased to 90 today. Karlee Start Date: 01/29/15 Status: Ordered Physical therapy Physical therapy, See Instructions, olesya and treat as indicated for back pain., # 1 Each, 0 Refill(s) Special Instructions: olesya and treat as indicated for back pain. Start Date: 01/29/15 Status: Ordered Zocor 10 mg oral tablet See Instructions, TAKE ONE TABLET BY MOUTH EVERY EVENING, # 90 tabs, 1 Refill(s) , eRx: [facility] #[id number], TAKE ONE TABLET BY MOUTH EVERY EVENING Special Instructions: TAKE ONE TABLET BY MOUTH EVERY EVENING Start Date: 11/04/14 Status: Ordered Results No data available for this section Immunizations Vaccine Date Refusal Reason pneumococcal 23-polyvalent vaccine 01/16/01 tetanus-diphth toxoids (Td) adult/adol 01/16/01 Procedures Procedure Date Related Diagnosis Body Site Colonoscopy no adenomatous colon polyps 06/01/12 Arthroscopy of knee - right 04/10/08 Chondroplasty - right knee medial and lateral 04/10/08 compartments Excision of fragment of bone - anterior 04/10/08 superior medial eminence, right knee Meniscectomy of right knee - Partial lateral 04/10/08 Meniscectomy of right knee - partial medial 04/10/08 Hysterectomy 1980 Social History Social History Type Response Smoking Status Former smoker; Type: Cigarettes Assessment and Plan Extracted from: Title: Ambulatory Patient Education Author: Juanjose Jaffe MD Date: 10/05 Family Medicine Back Pain, Adult Low back pain is very common. About 1 in 5 people have back pain.The cause of low back pain is rarely dangerous. The pain often gets better over time.About half of people with a sudden onset of back pain feel better in just 2 weeks. About 8 in 10 people feel better by 6 weeks. CAUSES Some common causes of back pain include: Strain of the muscles or ligaments supporting the spine. Wear and tear (degeneration ) of the spinal discs. Arthritis. Direct injury to the back. DIAGNOSIS Most of the time, the direct cause of low back pain is not known.However, back pain can be treated effectively even when the exact cause of the pain is unknown.Answering your caregiver's questions about your overall health and symptoms is one of the most accurate ways to make sure the cause of your pain is not dangerous. If your caregiver needs more information, he or she may order lab work or imaging tests (X-rays or MRIs).However, even if imaging tests show changes in your back, this usually does not require surgery. HOME CARE INSTRUCTIONS For many people, back pain returns.Since low back pain is rarely dangerous, it is often a condition that people can learn to manageon their own. Remain active. It is stressful on the back to sit or internal affairs commander one place. Do not sit, drive, or internal affairs commander one place for more than 30 minutes at a time. Take short walks on level surfaces as soon as pain allows.Try to increase the length of time you walk each day. Do not stay in bed.Resting more than 1 or 2 days can delay your recovery. Do not avoid exercise or work.Your body is made to move.It is not dangerous to be active, even though your back may hurt.Your back will likely heal faster if you return to being active before your pain is gone. Pay attention to your body when you bend and lift. Many people have less discomfortwhen lifting if they bend their knees, keep the load close to their bodies,and avoid twisting. Often, the most comfortable positions are those that put less stress on your recovering back. Find a comfortable position to sleep. Use a firm mattress and lie on your side with your knees slightly bent. If you lie on your back, put a pillow under your knees. Only take july-nve-rrdckni or prescription medicines as directed by your caregiver. Mbkq-mig-tljjvgq medicines to reduce pain and inflammation are often the most helpful.Your caregiver may prescribe muscle relaxant drugs.These medicines help dull your pain so you can more quickly return to your normal activities and healthy exercise. Put ice on the injured area. Put ice in a plastic bag. Place a towel between your skin and the bag. Leave the ice on for 15-20 minutes, 3-4 times a day for the first 2 to 3 days. After that, ice and heat may be alternated to reduce pain and spasms. Ask your caregiver about trying back exercises and gentle massage. This may be of some benefit. Avoid feeling anxious or stressed.Stress increases muscle tension and can worsen back pain.It is important to recognize when you are anxious or stressed and learn ways to manage it.Exercise is a great option. SEEK MEDICAL CARE IF: You have pain that is not relieved with rest or medicine. You have pain that does not improve in 1 week. You have new symptoms. You are generally not feeling well. SEEK IMMEDIATE MEDICAL CARE IF: You have pain that radiates from your back into your legs. You develop new bowel or bladder control problems. You have unusual weakness or numbness in your arms or legs. You develop nausea or vomiting. You develop abdominal pain. You feel faint. Document Released: 11/07/2006 Document Revised: 05/08/2013 Document Reviewed: Exit[employer] Patient Information 2014 [employer] [facility]. No follow up information was provided. Extracted from: Title: Office Visit Note Author: Juanjose Jaffe MD Date: 01/29/15 Assessment/Plan Back pain, chronic This issue is stable and appropriate refills, lab, and f/u have been discussed. Please make the medication adjustments we discussed. Please notify the office for any difficulties or concerns. Increasenorco 5 to ninety every 30 days. Script given for Physical therapy for neck and back pain. Benign essential HTN This issue is stable and appropriate refills, lab, and f/ u have been discussed. Chronic neck pain This issue is stable and appropriate refills, lab, and f/u have been discussed. Constipation This issue is stable and appropriate refills, lab, and f/u have been discussed. Samples of Linzess given as a courtesy. Depression This issue is stable and appropriate refills, lab, and f/u have been discussed. Hyperlipidemia This issue is stable and appropriate refills, lab, and f/u have been discussed. Onychomycosis Refill meds for six weeks. Schizoaffective disorder This issue is stable and appropriate refills, lab, and f/u have been discussed. Orders: cyclobenzaprine, See Instructions, TAKE 1/2 TO 1 TABLET BY MOUTH EVERY 8 HOURS NEEDED, # 60 tabs, 0 Refill(s), Pharmacy: [facility] # [id number], TAKE 1/2 TO 1 TABLET BY MOUTH EVERY 8 HOURS NEEDED HYDROcodone-acetaminophen, 1 tabs, Oral, q8hr, Number dispensed increased to 90 today. Karlee, # 90 tabs, 0 Refill(s) [facility] [place], Physical therapy, See Instructions, olesya and treat as indicated for back pain., # 1 Each, 0 Refill(s)
--- OUTSIDE RECORDS SUMMARY | 2017-04-15 08:06 | XMS REPORT | Referral Summary ---
Author Organization Unknown Address Unknown Phone Unavailable Care Team Providers Care Ramp Service Employee Name Role Phone Isabelle Jaffe Primary Care Physician [phone] Encounter VC Date(s): 12/12/14 - 12/12/14 [facility] Casillas, Juan, Family [address] [place] [address]- Discharge Diagnosis: Constipation Discharge Diagnosis: Stress incontinence Discharge Diagnosis: Schizoaffective disorder Discharge Diagnosis: Stress incontinence Discharge Diagnosis: Onychomycosis Discharge Diagnosis: Depression Discharge Disposition: Home or Self Care Attending Physician: Juanjose Jaffe MD Admitting Physician: Juanjose Jaffe MD Vital Signs Most recent to 1 oldest [Reference Range]: Blood Pressure 120/70 mmHg [90-140/60-90 mmHg] (12/12/14 2:51 PM) Problem List Condition Effective Dates Status Health Status Informant Arthralgia Active TMJ(Confirmed) Constipation(Confirm Active ed) Depression(Confirmed Active ) Schizoaffective Active disorder(Confirmed) Stress Active incontinence(Confirm ed) TMJ Active syndrome(Confirmed) Allergies, Adverse Reactions, Alerts No data available for this section Medications aspirin 81 mg oral tablet, chewable 1 tabs, Oral, Daily Start Date: 09/12/14 Status: Ordered bisacodyl 5 mg oral delayed release tablet 1 tabs, Oral, Daily, as needed for constipation, X 90 days, # 90 tabs, 1 Refill( s), [facility][id number], 1 tabs Oral Daily,x90 days,PRN:as needed for constipation Start Date: 11/01/14 Stop Date: 04/30/15 Status: Ordered CeleXA 20 mg oral tablet See Instructions, TAKE ONE TABLET BY MOUTH EVERY DAY, # 90 tabs, 1 Refill(s), eRx: [facility] #[id number], TAKE ONE TABLET BY MOUTH EVERY DAY Special Instructions: TAKE ONE TABLET BY MOUTH EVERY DAY Start Date: 11/26/14 Status: Ordered cyclobenzaprine 10 mg oral tablet See Instructions, TAKE 1/2 TO 1 TABLET BY MOUTH EVERY 8 HOURS NEEDED, # 60 tabs, eRx: [facility] #[id number], TAKE 1/2 TO 1 TABLET BY MOUTH EVERY 8 HOURS NEEDED Special Instructions: TAKE 1/2 TO 1 TABLET BY MOUTH EVERY 8 HOURS NEEDED Start Date: 06/28/14 Status: Ordered LamISIL 250 mg oral tablet 1 tabs, Oral, Daily, X 42 days, # 42 tabs, 0 Refill(s), Pharmacy: [facility] #[id number], 1 tabs Oral Daily,x42 days Start Date: 12/12/14 Stop Date: 01/23/15 Status: Ordered Linzess 145 mcg oral capsule 1 caps, Oral, Daily, # 30 caps, 0 Refill(s), samples given to patient (Rx) Start Date: 12/12/14 Status: Ordered lisinopril 10 mg oral tablet See Instructions, TAKE ONE TABLET BY MOUTH AT BEDTIME, # 90 tabs, eRx: [facility] #[id number], TAKE ONE TABLET BY MOUTH AT BEDTIME Special Instructions: TAKE ONE TABLET BY MOUTH AT BEDTIME Start Date: 08/19/14 Status: Ordered MiraLax oral powder for reconstitution 17 g, Oral, qAM, Constipation, dissolve in 8 oz of juice or water before taking , X 30 days, # 1 bottles, 1 Refill(s), Pharmacy: [facility] #[id number] Special Instructions: dissolve in 8 oz of juice or water before taking Start Date: 11/01/14 Stop Date: 12/31/14 Status: Ordered [place] 5 mg-325 mg oral tablet 1 tabs, Oral, q8hr, as needed for pain, # 60 tabs, 0 Refill(s) Start Date: 11/01/14 Status: Ordered [place] 5 mg-325 mg oral tablet 1-2 tabs, Oral, q8hr, MUST LAST 30 DAYS - MUST HAVE APPT PRIOR TO ADDITIONAL REFILLS - [facility], # 60 tabs, 0 Refill(s) Special Instructions: MUST LAST 30 DAYS - MUST HAVE APPT PRIOR TO ADDITIONAL REFILLS - [facility] Start Date: 08/19/14 Status: Ordered Zocor 10 mg oral tablet See Instructions, TAKE ONE TABLET BY MOUTH EVERY EVENING, # 90 tabs, 1 Refill(s) , eRx: [facility] #[id number], TAKE ONE TABLET BY MOUTH EVERY EVENING [...] Cigarettes Assessment and Plan Extracted from: Title: Office Visit Note Author: Juanjose Jaffe MD Date: 12/12/14 Assessment/Plan Constipation Trial of Linzess 145 mg po daily. Samples given. Call report. Depression This issue is stable and appropriate refills, lab, and f/u have been discussed. Onychomycosis Trial of lamisil 250mg po daily for six weeks. Recheck appt in six weeks for lab and refill. Side effects discussed. Schizoaffective disorder This issue is stable and appropriate refills, lab, and f/u have been discussed. Stress incontinence, Stress incontinence Meds discussed and deferred. Orders: linaclotide, 1 caps, Oral, Daily, # 30 caps, 0 Refill(s), samples given to patient (Rx) terbinafine, 1 tabs, Oral, Daily, X 42 days, # 42 tabs, 0 Refill(s), Pharmacy : [facility] #[id number], 1 tabs Oral Daily,x42 days
--- OUTSIDE RECORDS SUMMARY | 2017-04-15 08:06 | XMS REPORT | Continuity of Care Document ---
Author Author [facility] Organization [facility] Address Unknown Phone Unavailable Allergies Medications Problems Procedures Results Encounters ACCT No. Visit Date/Time Discharge Status Pt. Type Provider Facility Loc./Unit Complaint [id number] 01/16/2014 13:29:00 01/16/2014 23 :59:59 CLS Outpatient
--- OUTSIDE RECORDS SUMMARY | 2017-04-15 08:06 | XMS REPORT | Continuity of Care Document ---
Author Author Karlee Osborne LPN Ambulatory Address [address] [place] [id number] Phone Unavailable Care Team Providers Care Radiation Oncology Therapist Name Role Phone VioletairvinJuanjose PP Unavailable Payers Payer name Insurance type Covered republican ID Authorization(s) Unknown Problems Condition Effective Dates (start - stop) Clinical Status Cellulitis, face - *Acute Unspecified disorder of the teeth and supporting s - *Chronic Depression - *Controlled Hypertension, Benign - *Controlled Other and unspecified hyperlipidemia - *Controlled Depression - *Chronic Unspecified schizophrenia, unspecified condition - *Chronic Constipation - *Chronic Palpitations - *Chronic Other and unspecified hyperlipidemia - *Chronic Fatigue / Malaise - *Chronic Other and unspecified hyperlipidemia - *Chronic Hypertension, Benign - *Chronic Depression - *Chronic Constipation, unspecified - *Chronic Fatigue / Malaise - *Chronic Other and unspecified hyperlipidemia - *Chronic Constipation, unspecified - *Chronic Depression - *Chronic 311 - DEPRESSIVE DISORDER NEC - ARTHRALGIA TMJ - CONSTIPATION NOS - FEM STRESS INCONTINENCE - Family History Family Member Diagnosis Age At Onset Status Father (Unknown) Cancer - prostate Yes Mother (Unknown) Alive and well (Unknown) Social History Social History Element Description Quantity Unknown Allergies, Adverse Reactions, Alerts Substance Reaction Severity Status Unknown Medications Medication Instructions Dosage Effective Dates (start - stop) Status [place] 5 mg-325 mg tablet take 1 - 2 Tablet by oral route every 8 hours as needed for pain 0 - Active amoxicillin 500 mg capsule take 1 capsule (500MG) by oral route 3 times every day for 10 days 500 MG - No Longer Active aspirin 81 mg chewable tablet chew 1 tablet (81MG) by oral route every day 81 MG - Active lisinopril 10 mg tablet Take 1 tablet by mouth at bedtime. - Active bisacodyl 5 mg tablet,delayed release 1 tab po qd prn constipation. - Active Celexa 20 mg tablet Take 1 1/2 tabs po qd. - Active Flexeril 10 mg tablet TAKE 1/2-1 TABLETS BY MOUTH EVERY 8 HOURS NEEDED. - Active Miralax 17 gram/dose oral powder 17 grams mixed with 8 oz. juice or water q am. - Active Immunizations Vaccine Date Status Comments Td (adult) completed - Completed reason: source unspecified pneumo (2 yrs or older) (PPV23) completed - Completed reason: source unspecified Results Test Name Date and Time Measure Units Reference Range Abnormal Flag Comments Unknown Vital Signs Date / Time: Height Weight Pulse Rate Blood Pressure Temperature /13:30:00 62.00 in 150.00 lbs 138/80 mm[Hg] 97.3 F Procedures Procedure Date Unknown Encounters Encounter Location Date Patient Visit [facility] Patient Visit [facility] Patient Visit [facility] Patient Visit [facility] Patient Visit [facility] Patient Visit [facility] Patient Visit Conversion Patient Visit [facility] Advance Directives Directive Effective Date Unknown
--- OUTSIDE RECORDS SUMMARY | 2017-04-15 08:06 | XMS REPORT | Referral Summary ---
Author Organization Unknown Address Unknown Phone Unavailable Care Team Providers Care Gameroom Technician Name Role Phone VioletairvinIsabelle Primary Care Physician [phone] Encounter VC Date(s): 12/25/14 - 12/25/14 [address] CARMELA Casillas, Juan, Family [address] [place] [address]- Discharge Diagnosis: Well woman exam Discharge Diagnosis: Stress incontinence Discharge Diagnosis: Chronic abdominal pain Discharge Disposition: Home or Self Care Attending Physician: Raya Wellington APRN Admitting Physician: Raya Wellington APRN Vital Signs Most recent to 1 oldest [Reference Range]: Temperature Tympanic 36.5 degC [36.6-38.1 degC] *LOW* (12/25/14 9:34 AM) Blood Pressure 132/84 mmHg [90-140/60-90 mmHg] (12/25/14 9:34 AM) Problem List Condition Effective Dates Status [...] # 90 tabs, 1 Refill( s), Pharmacy: [facility] #[id number], 1 tabs Oral Daily,x90 days,PRN:as needed for constipation Start Date: 11/01/14 Stop Date: 04/30/15 Status: Ordered CeleXA 20 mg oral tablet See Instructions, TAKE ONE TABLET BY MOUTH EVERY DAY, # 90 tabs, 1 Refill(s), [id number], TAKE ONE TABLET BY MOUTH EVERY DAY Special Instructions: TAKE ONE TABLET BY MOUTH EVERY DAY Start Date: 11/26/14 Status: Ordered cyclobenzaprine 10 mg oral tablet See Instructions, TAKE 1/2 TO 1 TABLET BY MOUTH EVERY 8 HOURS NEEDED, # 60 tabs, eRx: [facility] #[id number], TAKE 1/2 TO 1 TABLET BY MOUTH EVERY 8 HOURS NEEDED Special Instructions: TAKE 1/2 TO 1 TABLET BY MOUTH EVERY 8 HOURS NEEDED Start Date: 06/28/14 Status: Ordered LamISIL 250 mg oral tablet 1 tabs, Oral, Daily, X 42 days, # 42 tabs, 0 Refill(s), Pharmacy: [facility] #[id number], 1 tabs Oral Daily,x42 days Start Date: 12/12/14 Stop Date: 01/23/15 Status: Ordered Linzess 145 mcg oral capsule 1 caps, Oral, Daily, # 30 caps, 0 Refill(s), samples given to patient (Rx) Start Date: 12/12/14 Status: Ordered lisinopril 10 mg oral tablet See Instructions, TAKE ONE TABLET BY MOUTH AT BEDTIME, # 90 tabs, eRx: [facility] #[id number], TAKE ONE TABLET BY MOUTH AT BEDTIME Special Instructions: TAKE ONE TABLET BY MOUTH AT BEDTIME Start Date: 08/19/14 Status: Ordered MiraLax oral powder for reconstitution 17 g, Oral, qAM, Constipation, dissolve in 8 oz of juice or water before taking , X 30 days, # 1 bottles, 1 Refill(s), Pharmacy: [facility] #[id number] Special Instructions: dissolve in 8 oz of juice or water before taking Start Date: 11/01/14 Stop Date: 12/31/14 Status: Ordered Jackson 5 mg-325 mg oral tablet 1 tabs, Oral, q8hr, # 60 tabs, 0 Refill(s) Start Date: 12/25/14 Status: Ordered Jackson 5 mg-325 mg oral tablet 1 tabs, Oral, q8hr, as needed for pain, # 60 tabs, 0 Refill(s) Start Date: 11/01/14 Status: Ordered Jackson 5 mg-325 mg oral tablet 1-2 tabs, Oral, q8hr, MUST LAST 30 DAYS - MUST HAVE APPT PRIOR TO ADDITIONAL REFILLS - [facility], # 60 tabs, 0 Refill(s) Special Instructions: MUST LAST 30 DAYS - MUST HAVE APPT PRIOR TO ADDITIONAL REFILLS - [facility] Start Date: 08/19/14 Status: Ordered Zocor 10 mg oral tablet See Instructions, TAKE ONE TABLET BY MOUTH EVERY EVENING, # 90 tabs, 1 Refill(s) , eRx: [facility] #[id number], TAKE ONE TABLET BY MOUTH EVERY EVENING Special Instructions: TAKE ONE TABLET BY MOUTH EVERY EVENING Start Date: 11/04/14 Status: Ordered Results Urinalysis Most recent to 1 oldest [Reference Range]: UA Color Yellow (12/25/14 10:42 AM) UA Appear Clear (12/25/14 10:42 AM) UA pH [5.0-8.0] 6.0 (12/25/14 10:42 AM) UA Leuk Est Negative [Negative] (12/25/14 10:42 AM) UA Nitrite Negative [Negative] (12/25/14 10:42 AM) UA Protein Negative [Negative] (12/25/14 10:42 AM) UA Glucose Negative [Negative] (12/25/14 10:42 AM) UA Ketones Negative [Negative] (12/25/14 10:42 AM) UA Urobilinogen 0.2 mg/dL (12/25/14 10:42 AM) UA Bili [Negative] Negative (12/25/14 10:42 AM) UA Blood Negative (12/25/14 10:42 AM) UA Spec Grav 1.025 [1.003-1.030] (12/25/14 10:42 AM) Type Clean Catch (12/25/14 10:42 AM) Immunizations Vaccine Date Refusal Reason pneumococcal 23-polyvalent [...] Extracted from: Title: Ambulatory Patient Education Author: Raya Wellington APRN Date: Family Medicine Chronic Pain Chronic pain can be defined as pain that is lasting, off and on, and lasts for 3 to 6 months or longer. Many things cause chronic pain, which can make it difficult to make a discrete diagnosis. There are many treatment options available for chronic pain. However, finding a treatment that works well for you may require trying various approaches until a suitable one is found. CAUSES In some types of chronic medical conditions, the pain is caused by a normal pain response within the body. A normal pain response helps the body identify illness or injury and prevent further damage from being done. In these cases, the cause of the pain may be identified and treated, even if it may not be cured completely. Examples of chronic conditions which can cause chronic pain include: Inflammation of the joints (arthritis ). Back pain or neck pain (including bulging or herniated disks). Migraine headaches. Cancer. In some other types of chronic pain syndromes, the pain is caused by an abnormal pain response within the body. An abnormal pain response is present when there is no ongoing cause (or stimulus) for the pain, or when the cause of the pain is arising from the nerves or nervous system itself. Examples of conditions which can cause chronic pain due to an abnormal pain response include : Fibromyalgia. Reflex sympathetic dystrophy (RSD). Neuropathy (when the nerves themselves are damaged, and may cause pain). DIAGNOSIS Your caregiver will help diagnose your condition over time. In many cases, the initial focus will be on excluding conditions that could be causing the pain. Depending on your symptoms, your caregiver may order some tests to diagnose your condition. Some of these tests include: Blood tests. Computerized X-ray scans (CT scan). Computerized magnetic scans (MRI). X-rays. Ultrasounds. Nerve conduction studies. Consultation with other physicians or specialists. TREATMENT There are many treatment options for people suffering from chronic pain. Finding a treatment that works well may take time. You may be referred to a paint mixer. You may be put on medication to help with the pain. Unfortunately, some medications (such as opiate medications) may not be very effective in cases where chronic pain is due to abnormal pain responses. Finding the right medications can take some time. Adjunctive therapies may be used to provide additional relief and improve a patient's quality of life. These therapies include: Mindfulness meditation. Acupuncture. Biofeedback. Cognitive-behavioral therapy. In certain cases, surgical interventions may be attempted. HOME CARE INSTRUCTIONS Make sure you understand these instructions prior to discharge. Ask any questions and share any further concerns you have with your caregiver prior to discharge. Take all medications as directed by your caregiver. Keep all follow-up appointments. SEEK MEDICAL CARE IF: Your pain gets worse. You develop a new pain that was not present before. You cannot tolerate any medications prescribed by your caregiver. You develop new symptoms since your last visit with your caregiver. SEEK IMMEDIATE MEDICAL CARE IF: You develop muscular weakness. You have decreased sensation or numbness. You lose control of bowel or bladder function. Your pain suddenly gets much worse. You have an oral temperature above 102 F (38.9 C), not controlled by medication. You develop shaking chills, confusion, chest pain, or shortness of breath. Document Released: 07/30/2003 Document Revised: 01/29/2013 Document Reviewed: [facility] Patient Information [address] [facility]. Health Maintenance, Female A healthy lifestyle and preventative care can promote health and wellness. Maintain regular health, dental, and eye exams. Eat a healthy diet. Foods like vegetables, fruits, whole grains, low-fat dairy products, and lean protein foods contain the nutrients you need without too many calories. Decrease your intake of foods high in solid fats, added sugars, and salt. Get information about a proper diet from your caregiver, if necessary. Regular physical exercise is one of the most important things you can do for your health. Most adults should get at least 150 minutes of moderate- intensity exercise (any activity that increases your heart rate and causes you to sweat) each week. In addition, most adults need muscle-strengthening exercises on 2 or more days a week. Maintain a healthy weight. The body mass index (BMI) is a screening tool to identify possible weight problems. It provides an estimate of body fat based on height and weight. Your caregiver can help determine your BMI, and can help you achieve or maintain a healthy weight. For adults 20 years and older: A BMI below 18.5 is considered underweight. A BMI of 18.5 to 24.9 is normal. A BMI of 25 to 29.9 is considered overweight. A BMI of 30 and above is considered obese. Maintain normal blood lipids and cholesterol by exercising and minimizing your intake of saturated fat. Eat a balanced diet with plenty of fruits and vegetables. Blood tests for lipids and cholesterol should begin at age 20 and be repeated every 5 years. If your lipid or cholesterol levels are high, you are over 50, or you are a high risk for heart disease, you may need your cholesterol levels checked more frequently.Ongoing high lipid and cholesterol levels should be treated with medicines if diet and exercise are not effective. If you smoke, find out from your caregiver how to quit. If you do not use tobacco, do not start. Lung cancer screening is recommended for adults aged 5580 years who are at high risk for developing lung cancer because of a history of smoking. Yearly low-dose computed tomography (CT) is recommended for people who have at least a 85-nrqn-einf history of smoking and are a current smoker or have quit within the past 15 years. A pack year of smoking is smoking an average of 1 pack of cigarettes a day for 1 year (for example: 1 pack a day for 30 years or 2 packs a day for 15 years). Yearly screening should continue until the smoker has stopped smoking for at least 15 years. Yearly screening should also be stopped for people who develop a health problem that would prevent them from having lung cancer treatment. If you are , do not drink alcohol. If you are , be very cautious about drinking alcohol. If you are not and choose to drink alcohol, do not exceed 1 drink per day. One drink is considered to be 12 ounces (355 mL) of beer, 5 ounces (148 mL) of wine, or 1.5 ounces (44 mL) of liquor. Avoid use of street drugs. Do not share needles with anyone. Ask for help if you need support or instructions about stopping the use of drugs. High blood pressure causes heart disease and increases the risk of stroke. Blood pressure should be checked at least every 1 to 2 years. Ongoing high blood pressure should be treated with medicines, if weight loss and exercise are not effective. If you are 55 to 79 years old, ask your caregiver if you should take aspirin to prevent strokes. Diabetes screening involves taking a blood sample to check your fasting blood sugar level. This should be done once every 3 years, after age 45, if you are within normal weight and without risk factors for diabetes. Testing should be considered at a younger age or be carried out more frequently if you are overweight and have at least 1 risk factor for diabetes. Breast cancer screening is essential preventative care for women. You should practice "breast self-awareness." This means understanding the normal appearance and feel of your breasts and may include breast self-examination. Any changes detected, no matter how small, should be reported to a caregiver. Women in their 20s and 30s should have a clinical breast exam (CBE) by a caregiver as part of a regular health exam every 1 to 3 years. After age 40, women should have a CBE every year. Starting at age 40, women should consider having a mammogram (breast X-ray ) every year. Women who have a family history of breast cancer should talk to their caregiver about genetic screening. Women at a high risk of breast cancer should talk to their caregiver about having an MRI and a mammogram every year. Breast cancer gene (BRCA )-related cancer risk assessment is recommended for women who have family members with BRCA -related cancers. BRCA -related cancers include breast, ovarian, tubal, and peritoneal cancers. Having family members with these cancers may be associated with an increased risk for harmful changes (mutations ) in the breast cancer genes BRCA1 and BRCA2 . Results of the assessment will determine the need for genetic counseling and BRCA1 and BRCA2 testing. The Pap test is a screening test for cervical cancer. Women should have a Pap test starting at age 21. Between ages 21 and 29, Pap tests should be repeated every 2 years. Beginning at age 30, you should have a Pap test every 3 years as long as the past 3 Pap tests have been normal. If you had a hysterectomy for a problem that was not cancer or a condition that could lead to cancer, then you no longer need Pap tests. If you are between ages 65 and 70 , and you have had normal Pap tests going back 10 years, you no longer need Pap tests. If you have had past treatment for cervical cancer or a condition that could lead to cancer, you need Pap tests and screening for cancer for at least 20 years after your treatment. If Pap tests have been discontinued, risk factors (such as a new sexual partner) need to be reassessed to determine if screening should be resumed. Some women have medical problems that increase the chance of getting cervical cancer. In these cases, your caregiver may recommend more frequent screening and Pap tests. The human papillomavirus (HPV) test is an additional test that may be used for cervical cancer screening. The HPV test looks for the virus that can cause the cell changes on the cervix. The cells collected during the Pap test can be tested for HPV. The HPV test could be used to screen women aged 30 years and older, and should be used in women of any age who have unclear Pap test results. After the age of 30, women should have HPV testing at the same frequency as a Pap test. Colorectal cancer can be detected and often prevented. Most routine colorectal cancer screening begins at the age of 50 and continues through age 75. However, your caregiver may recommend screening at an earlier age if you have risk factors for colon cancer. On a yearly basis, your caregiver may provide home test kits to check for hidden blood in the stool. Use of a small camera at the end of a tube, to directly examine the colon (sigmoidoscopy or colonoscopy ), can detect the earliest forms of colorectal cancer. Talk to your caregiver about this at age 50, when routine screening begins. Direct examination of the colon should be repeated every 5 to 10 years through age 75, unless early forms of pre-cancerous polyps or small growths are found. Hepatitis C blood testing is recommended for all people born from 1945 through 1965 and any individual with known risks for hepatitis C. Practice safe sex. Use condoms and avoid high-risk sexual practices to reduce the spread of sexually transmitted infections (STIs). Sexually active women aged 25 and younger should be checked for Chlamydia, which is a common sexually transmitted infection. Older women with new or multiple partners should also be tested for Chlamydia. Testing for other STIs is recommended if you are sexually active and at increased risk. Osteoporosis is a disease in which the bones lose minerals and strength with aging. This can result in serious bone fractures. The risk of osteoporosis can be identified using a bone density scan. Women ages 65 and over and women at risk for fractures or osteoporosis should discuss screening with their caregivers. Ask your caregiver whether you should be taking a calcium supplement or vitamin D to reduce the rate of osteoporosis. Menopause can be associated with physical symptoms and risks. Hormone replacement therapy is available to decrease symptoms and risks. You should talk to your caregiver about whether hormone replacement therapy is right for you. Use sunscreen. Apply sunscreen liberally and repeatedly throughout the day. You should seek shade when your shadow is shorter than you. Protect yourself by wearing long sleeves, pants, a wide-brimmed hat, and sunglasses year round, whenever you are outdoors. Notify your caregiver of new moles or changes in moles, especially if there is a change in shape or color. Also notify your caregiver if a mole is larger than the size of a pencil eraser. Stay current with your immunizations. Document Released: 05/22/2012 Document Revised: 03/04/2014 Document Reviewed: [facility] Patient Information [address] [email or web address]. Preventive Care for Adults, Female A healthy lifestyle and preventive care can promote health and wellness. Preventive health guidelines for women include the following rdz practices. A routine yearly physical is a good way to check with your caregiver about your health and preventive screening. It is a chance to share any concerns and updates on your health, and to receive a thorough exam. Visit your dentist for a routine exam and preventive care every 6 months. [place] your teeth twice a day and floss once a day. Good oral hygiene prevents tooth decay and gum disease. The frequency of eye exams is based on your age, health, family medical history, use of contact lenses, and other factors. Follow your caregiver's recommendations for frequency of eye exams. Eat a healthy diet. Foods like vegetables, fruits, whole grains, low-fat dairy products, and lean protein foods contain the nutrients you need without too many calories. Decrease your intake of foods high in solid fats, added sugars, and salt. Eat the right amount of calories for you.Get information about a proper diet from your caregiver, if necessary. Regular physical exercise is one of the most important things you can do for your health. Most adults should get at least 150 minutes of moderate- intensity exercise (any activity that increases your heart rate and causes you to sweat) each week. In addition, most adults need muscle-strengthening exercises on 2 or more days a week. Maintain a healthy weight. The body mass index (BMI) is a screening tool to identify possible weight problems. It provides an estimate of body fat based on height and weight. Your caregiver can help determine your BMI, and can help you achieve or maintain a healthy weight.For adults 20 years and older: A BMI below 18.5 is considered underweight. A BMI of 18.5 to 24.9 is normal. A BMI of 25 to 29.9 is considered overweight. A BMI of 30 and above is considered obese. Maintain normal blood lipids and cholesterol levels by exercising and minimizing your intake of saturated fat. Eat a balanced diet with plenty of fruit and vegetables. Blood tests for lipids and cholesterol should begin at age 20 and be repeated every 5 years. If your lipid or cholesterol levels are high, you are over 50, or you are at high risk for heart disease, you may need your cholesterol levels checked more frequently.Ongoing high lipid and cholesterol levels should be treated with medicines if diet and exercise are not effective. If you smoke, find out from your caregiver how to quit. If you do not use tobacco, do not start. Lung cancer screening is recommended for adults aged 5580 years who are at high risk for developing lung cancer because of a history of smoking. Yearly low-dose computed tomography (CT) is recommended for people who have at least a [id number]-erzn history of smoking and are a current smoker or have quit within the past 15 years. A pack year of smoking is smoking an average of 1 pack of cigarettes a day for 1 year (for example: 1 pack a day for 30 years or 2 packs a day for 15 years). Yearly screening should continue until the smoker has stopped smoking for at least 15 years. Yearly screening should also be stopped for people who develop a health problem that would prevent them from having lung cancer treatment. If you are , do not drink alcohol. If you are , be very cautious about drinking alcohol. If you are not and choose to drink alcohol, do not exceed 1 drink per day. One drink is considered to be 12 ounces (355 mL) of beer, 5 ounces (148 mL) of wine, or 1.5 ounces (44 mL) of liquor. Avoid use of street drugs. Do not share needles with anyone. Ask for help if you need support or instructions about stopping the use of drugs. High blood pressure causes heart disease and increases the risk of stroke. Your blood pressure should be checked at least every 1 to 2 years. Ongoing high blood pressure should be treated with medicines if weight loss and exercise are not effective. If you are 55 to 79 years old, ask your caregiver if you should take aspirin to prevent strokes. Diabetes screening involves taking a blood sample to check your fasting blood sugar level. This should be done once every 3 years, after age 45, if you are within normal weight and without risk factors for diabetes. Testing should be considered at a younger age or be carried out more frequently if you are overweight and have at least 1 risk factor for diabetes. Breast cancer screening is essential preventive care for women. You should practice "breast self-awareness." This means understanding the normal appearance and feel of your breasts and may include breast self-examination. Any changes detected, no matter how small, should be reported to a caregiver. Women in their 20s and 30s should have a clinical breast exam (CBE) by a caregiver as part of a regular health exam every 1 to 3 years. After age 40, women should have a CBE every year. Starting at age 40, women should consider having a mammography (breast X-ray test ) every year. Women who have a family history of breast cancer should talk to their caregiver about genetic screening. Women at a high risk of breast cancer should talk to their caregivers about having magnetic resonance imaging (MRI) and a mammography every year. Breast cancer gene (BRCA )-related cancer risk assessment is recommended for women who have family members with BRCA -related cancers. BRCA -related cancers include breast, ovarian, tubal, and peritoneal cancers. Having family members with these cancers may be associated with an increased risk for harmful changes (mutations ) in the breast cancer genes BRCA1 and BRCA2 . Results of the assessment will determine the need for genetic counseling and BRCA1 and BRCA2 testing. The Pap test is a screening test for cervical cancer. A Pap test can show cell changes on the cervix that might become cervical cancer if left untreated. A Pap test is a procedure in which cells are obtained and examined from the lower end of the uterus (cervix ). Women should have a Pap test starting at age 21. Between ages 21 and 29, Pap tests should be repeated every 2 years. Beginning at age 30, you should have a Pap test every 3 years as long as the past 3 Pap tests have been normal. Some women have medical problems that increase the chance of getting cervical cancer. Talk to your caregiver about these problems. It is especially important to talk to your caregiver if a new problem develops soon after your last Pap test. In these cases, your caregiver may recommend more frequent screening and Pap tests. The above recommendations are the same for women who have or have not gotten the vaccine for human papillomavirus (HPV). If you had a hysterectomy for a problem that was not cancer or a condition that could lead to cancer, then you no longer need Pap tests. Even if you no longer need a Pap test, a regular exam is a good idea to make sure no other problems are starting. If you are between ages 65 and 70, and you have had normal Pap tests going back 10 years, you no longer need Pap tests. Even if you no longer need a Pap test, a regular exam is a good idea to make sure no other problems are starting. If you have had past treatment for cervical cancer or a condition that could lead to cancer, you need Pap tests and screening for cancer for at least 20 years after your treatment. If Pap tests have been discontinued, risk factors (such as a new sexual partner) need to be reassessed to determine if screening should be resumed. The HPV test is an additional test that may be used for cervical cancer screening. The HPV test looks for the virus that can cause the cell changes on the cervix. The cells collected during the Pap test can be tested for HPV. The HPV test could be used to screen women aged 30 years and older, and should be used in women of any age who have unclear Pap test results. After the age of 30 , women should have HPV testing at the same frequency as a Pap test. Colorectal cancer can be detected and often prevented. Most routine colorectal cancer screening begins at the age of 50 and continues through age 75. However, your caregiver may recommend screening at an earlier age if you have risk factors for colon cancer. On a yearly basis, your caregiver may provide home test kits to check for hidden blood in the stool. Use of a small camera at the end of a tube, to directly examine the colon (sigmoidoscopy or colonoscopy ), can detect the earliest forms of colorectal cancer. Talk to your caregiver about this at age 50, when routine screening begins. Direct examination of the colon should be repeated every 5 to 10 years through age 75, unless early forms of pre-cancerous polyps or small growths are found. Hepatitis C blood testing is recommended for all people born from 1945 through 1965 and any individual with known risks for hepatitis C. Practice safe sex. Use condoms and avoid high-risk sexual practices to reduce the spread of sexually transmitted infections (STIs). STIs include gonorrhea, chlamydia, syphilis, trichomonas, herpes, HPV, and human immunodeficiency virus (HIV). Herpes, HIV, and HPV are viral illnesses that have no cure. They can result in disability, cancer, and . Sexually active women aged 25 and younger should be checked for chlamydia. Older women with new or multiple partners should also be tested for chlamydia. Testing for other STIs is recommended if you are sexually active and at increased risk. Osteoporosis is a disease in which the bones lose minerals and strength with aging. This can result in serious bone fractures. The risk of osteoporosis can be identified using a bone density scan. Women ages 65 and over and women at risk for fractures or osteoporosis should discuss screening with their caregivers. Ask your caregiver whether you should take a calcium supplement or vitamin D to reduce the rate of osteoporosis. Menopause can be associated with physical symptoms and risks. Hormone replacement therapy is available to decrease symptoms and risks. You should talk to your caregiver about whether hormone replacement therapy is right for you. Use sunscreen. Apply sunscreen liberally and repeatedly throughout the day. You should seek shade when your shadow is shorter than you. Protect yourself by wearing long sleeves, pants, a wide-brimmed hat, and sunglasses year round, whenever you are outdoors. Once a month, do a whole body skin exam, using a mirror to look at the skin on your back. Notify your caregiver of new moles, moles that have irregular borders, moles that are larger than a pencil eraser, or moles that have changed in shape or color. Stay current with required immunizations. Influenza vaccine. All adults should be immunized every year. Tetanus, diphtheria, and acellular pertussis (Td, Tdap) vaccine. women should receive 1 dose of Tdap vaccine during each . The dose should be obtained regardless of the length of time since the last dose. Immunization is preferred during the 27th to 36th week of gestation. An adult who has not previously received Tdap or who does not know her vaccine status should receive 1 dose of Tdap. This initial dose should be followed by tetanus and diphtheria toxoids (Td) booster doses every 10 years. Adults with an unknown or incomplete history of completing a 3-dose immunization series with Td -containing vaccines should begin or complete a primary immunization series including a Tdap dose. Adults should receive a Td booster every 10 years. Varicella vaccine. An adult without evidence of immunity to varicella should receive 2 doses or a second dose if she has previously received 1 dose. females who do not have evidence of immunity should receive the first dose after . This first dose should be obtained before leaving the health care facility. The second dose should be obtained 48 weeks after the first dose. Human papillomavirus (HPV) vaccine. Females aged 1326 years who have not received the vaccine previously should obtain the 3-dose series. The vaccine is not recommended for use in females. However, testing is not needed before receiving a dose. If a female is found to be after receiving a dose, no treatment is needed. In that case, the remaining doses should be delayed until after the . Immunization is recommended for any person with an immunocompromised condition through the age of 26 years if she did not get any or all doses earlier. During the 3-dose series, the second dose should be obtained 48 weeks after the first dose. The third dose should be obtained 24 weeks after the first dose and 16 weeks after the second dose. Zoster vaccine. One dose is recommended for adults aged 60 years or older unless certain conditions are present. Measles, mumps, and rubella (MMR) vaccine. Adults born before 1954 generally are considered immune to measles and mumps. Adults born in 1954 or later should have 1 or more doses of MMR vaccine unless there is a contraindication to the vaccine or there is laboratory evidence of immunity to each of the three diseases. A routine second dose of MMR vaccine should be obtained at least 28 days after the first dose for students attending postsecondary schools, health care workers, or international travelers. People who received inactivated measles vaccine or an unknown type of measles vaccine during should receive 2 doses of MMR vaccine. People who received inactivated mumps vaccine or an unknown type of mumps vaccine before 1978 and are at high risk for mumps infection should consider immunization with 2 doses of MMR vaccine. For females of childbearing age, rubella immunity should be determined. If there is no evidence of immunity, females who are not should be vaccinated. If there is no evidence of immunity, females who are should delay immunization until after . Unvaccinated health care workers born before 1954 who lack laboratory evidence of measles, mumps, or rubella immunity or laboratory confirmation of disease should consider measles and mumps immunization with 2 doses of MMR vaccine or rubella immunization with 1 dose of MMR vaccine. Pneumococcal 13-valent conjugate (PCV13) vaccine. When indicated, a person who is uncertain of her immunization history and has no record of immunization should receive the PCV13 vaccine. An adult aged 19 years or older who has certain medical conditions and has not been previously immunized should receive 1 dose of PCV13 vaccine. This PCV13 should be followed with a dose of pneumococcal polysaccharide (PPSV23) vaccine. The PPSV23 vaccine dose should be obtained at least 8 weeks after the dose of PCV13 vaccine. An adult aged 19 years or older who has certain medical conditions and previously received 1 or more doses of PPSV23 vaccine should receive 1 dose of PCV13. The PCV13 vaccine dose should be obtained 1 or more years after the last PPSV23 vaccine dose. Pneumococcal polysaccharide (PPSV23) vaccine. When PCV13 is also indicated , PCV13 should be obtained first. All adults aged 65 years and older should be immunized. An adult younger than age 65 years who has certain medical conditions should be immunized. Any person who resides in a prison or long -term care facility should be immunized. An adult smoker should be immunized. People with an immunocompromised condition and certain other conditions should receive both PCV13 and PPSV23 vaccines. People with human immunodeficiency virus (HIV) infection should be immunized as soon as possible after diagnosis. Immunization during chemotherapy or radiation therapy should be avoided. Routine use of PPSV23 vaccine is not recommended for [place] Indians, [place] Natives, or people younger than 65 years unless there are medical conditions that require PPSV23 vaccine. When indicated, people who have unknown immunization and have no record of immunization should receive PPSV23 vaccine. One-time revaccination 5 years after the first dose of PPSV23 is recommended for people aged 1964 years who have chronic kidney failure, nephrotic syndrome, asplenia, or immunocompromised conditions. People who received 12 doses of PPSV23 before age 65 years should receive another dose of PPSV23 vaccine at age 65 years or later if at least 5 years have passed since the previous dose. Doses of PPSV23 are not needed for people immunized with PPSV23 at or after age 65 years. Meningococcal vaccine. Adults with asplenia or persistent complement component deficiencies should receive 2 doses of quadrivalent meningococcal conjugate (MenACWY-D) vaccine. The doses should be obtained at least 2 months apart. Microbiologists working with certain meningococcal bacteria, recruits, people at risk during an outbreak, and people who travel to or live in countries with a high rate of meningitis should be immunized. A first-year college student up through age 21 years who is living in a residence [place] should receive a dose if she did not receive a dose on or after her 16th birthday. Adults who have certain high-risk conditions should receive one or more doses of vaccine. Hepatitis A vaccine. Adults who wish to be protected from this disease, have certain high-risk conditions, work with hepatitis A-infected animals, work in hepatitis A research labs, or travel to or work in countries with a high rate of hepatitis A should be immunized. Adults who were previously unvaccinated and who anticipate close contact with an international adoptee during the first 60 days after arrival in the [place] from a country with a high rate of hepatitis A should be immunized. Hepatitis B vaccine. Adults who wish to be protected from this disease, have certain high-risk conditions, may be exposed to blood or other infectious body fluids, are household contacts or sex partners of hepatitis B positive people, are clients or workers in certain care facilities, or travel to or work in countries with a high rate of hepatitis B should be immunized. Haemophilus influenzae type b (Hib) vaccine. A previously unvaccinated person with asplenia or sickle cell disease or having a scheduled splenectomy should receive 1 dose of Hib vaccine. Regardless of previous immunization, a recipient of a hematopoietic stem cell transplant should receive a 3-dose series 612 months after her successful transplant. Hib vaccine is not recommended for adults with HIV infection. Preventive Services / Frequency Ages 19 to 39 Blood pressure check. / Every 1 to 2 years. Lipid and cholesterol check. / Every 5 years beginning at age 20. Clinical breast exam. / Every 3 years for women in their 20s and 30s. BRCA -related cancer risk assessment. / For women who have family members with a BRCA -related cancer (breast, ovarian, tubal, or peritoneal cancers). Pap test. / Every 2 years from ages 21 through 29. Every 3 years starting at age 30 through age 65 or 70 with a history of 3 consecutive normal Pap tests. HPV screening. / Every 3 years from ages 30 through ages 65 to 70 with a history of 3 consecutive normal Pap tests. Hepatitis C blood test. / For any individual with known risks for hepatitis C. Skin self-exam. / Monthly. Influenza vaccine. / Every year. Tetanus, diphtheria, and acellular pertussis (Tdap, Td) vaccine. / Consult your caregiver. women should receive 1 dose of Tdap vaccine during each . 1 dose of Td every 10 years. Varicella vaccine. / Consult your caregiver. females who do not have evidence of immunity should receive the first dose after . HPV vaccine. / 3 doses over 6 months, if 26 and younger. The vaccine is not recommended for use in females. However, testing is not needed before receiving a dose. Measles, mumps, rubella (MMR) vaccine. / You need at least 1 dose of MMR if you were born in 1957 or later. You may also need a 2nd dose. For females of childbearing age, rubella immunity should be determined. If there is no evidence of immunity, females who are not should be vaccinated. If there is no evidence of immunity, females who are should delay immunization until after . Pneumococcal 13-valent conjugate (PCV13) vaccine. / Consult your caregiver. Pneumococcal polysaccharide (PPSV23) vaccine. / 1 to 2 doses if you smoke cigarettes or if you have certain conditions. Meningococcal vaccine. / 1 dose if you are age 19 to 21 years and a first -year college student living in a residence [place], or have one of several medical conditions, you need to get vaccinated against meningococcal disease. You may also need additional booster doses. Hepatitis A vaccine. / Consult your caregiver. Hepatitis B vaccine. / Consult your caregiver. Haemophilus influenzae type b (Hib) vaccine. / Consult your caregiver. Ages 40 to 64 Blood pressure check. / Every 1 to 2 years. Lipid and cholesterol check. / Every 5 years beginning at age 20. Lung cancer screening. / Every year if you are aged 5580 years and have a 20-qwky-wwiz history of smoking and currently smoke or have quit within the past 15 years. Yearly screening is stopped once you have quit smoking for at least 15 years or develop a health problem that would prevent you from having lung cancer treatment. Clinical breast exam. / Every year after age 40. BRCA -related cancer risk assessment. / For women who have family members with a BRCA -related cancer (breast, ovarian, tubal, or peritoneal cancers). Mammogram. / Every year beginning at age 40 and continuing for as long as you are in good health. Consult with your caregiver. Pap test. / Every 3 years starting at age 30 through age 65 or 70 with a history of 3 consecutive normal Pap tests. HPV screening. / Every 3 years from ages 30 through ages 65 to 70 with a history of 3 consecutive normal Pap tests. Fecal occult blood test (FOBT) of stool. / Every year beginning at age 50 and continuing until age 75. You may not need to do this test if you get a colonoscopy every 10 years. Flexible sigmoidoscopy or colonoscopy. / Every 5 years for a flexible sigmoidoscopy or every 10 years for a colonoscopy beginning at age 50 and continuing until age 75. Hepatitis C blood test. / For all people born from 1945 through 1965 and any individual with known risks for hepatitis C. Skin self-exam. / Monthly. Influenza vaccine. / Every year. Tetanus, diphtheria, and acellular pertussis (Tdap/Td) vaccine. / Consult your caregiver. women should receive 1 dose of Tdap vaccine during each . 1 dose of Td every 10 years. Varicella vaccine. / Consult your caregiver. females who do not have evidence of immunity should receive the first dose after . Zoster vaccine. / 1 dose for adults aged 60 years or older. Measles, mumps, rubella (MMR) vaccine. / You need at least 1 dose of MMR if you were born in 1957 or later. You may also need a 2nd dose. For females of childbearing age, rubella immunity should be determined. If there is no evidence of immunity, females who are not should be vaccinated. If there is no evidence of immunity, females who are should delay immunization until after . Pneumococcal 13-valent conjugate (PCV13) vaccine. / Consult your caregiver. Pneumococcal polysaccharide (PPSV23) vaccine. / 1 to 2 doses if you smoke cigarettes or if you have certain conditions. Meningococcal vaccine. / Consult your caregiver. Hepatitis A vaccine. / Consult your caregiver. Hepatitis B vaccine. / Consult your caregiver. Haemophilus influenzae type b (Hib) vaccine. / Consult your caregiver. Ages 65 and over Blood pressure check. / Every 1 to 2 years. Lipid and cholesterol check. / Every 5 years beginning at age 20. Lung cancer screening. / Every year if you are aged 5580 years and have a 60-nnhn-swiu history of smoking and currently smoke or have quit within the past 15 years. Yearly screening is stopped once you have quit smoking for at least 15 years or develop a health problem that would prevent you from having lung cancer treatment. Clinical breast exam. / Every year after age 40. BRCA -related cancer risk assessment. / For women who have family members with a BRCA -related cancer (breast, ovarian, tubal, or peritoneal cancers). Mammogram. / Every year beginning at age 40 and continuing for as long as you are in good health. Consult with your caregiver. Pap test. / Every 3 years starting at age 30 through age 65 or 70 with a 3 consecutive normal Pap tests. Testing can be stopped between 65 and 70 with 3 consecutive normal Pap tests and no abnormal Pap or HPV tests in the past 10 years. HPV screening. / Every 3 years from ages 30 through ages 65 or 70 with a history of 3 consecutive normal Pap tests. Testing can be stopped between 65 and 70 with 3 consecutive normal Pap tests and no abnormal Pap or HPV tests in the past 10 years. Fecal occult blood test (FOBT) of stool. / Every year beginning at age 50 and continuing until age 75. You may not need to do this test if you get a colonoscopy every 10 years. Flexible sigmoidoscopy or colonoscopy. / Every 5 years for a flexible sigmoidoscopy or every 10 years for a colonoscopy beginning at age 50 and continuing until age 75. Hepatitis C blood test. / For all people born from 1945 through 1965 and any individual with known risks for hepatitis C. Osteoporosis screening. / A one-time screening for women ages 65 and over and women at risk for fractures or osteoporosis. Skin self-exam. / Monthly. Influenza vaccine. / Every year. Tetanus, diphtheria, and acellular pertussis (Tdap/Td) vaccine. / 1 dose of Td every 10 years. Varicella vaccine. / Consult your caregiver. Zoster vaccine. / 1 dose for adults aged 60 years or older. Pneumococcal 13-valent conjugate (PCV13) vaccine. / Consult your caregiver. Pneumococcal polysaccharide (PPSV23) vaccine. / 1 dose for all adults aged 65 years and older. Meningococcal vaccine. / Consult your caregiver. Hepatitis A vaccine. / Consult your caregiver. Hepatitis B vaccine. / Consult your caregiver. Haemophilus influenzae type b (Hib) vaccine. / Consult your caregiver. Family history and personal history of risk and conditions may change your caregiver's recommendations. Document Released: 01/03/2003 Document Revised: 03/04/2014 Document Reviewed: [employer] Patient Information [address] [employer] [facility]. No follow up information was provided. Extracted from: Title: Office Visit Note Author: Raya Wellington APRN Date: 12/25/14 Assessment/Plan Chronic abdominal pain KUB done today- Negative findings. Ordered: Office Visit Level 4 Est 70535 Stress incontinence UA sent to lab- Negative for UTI. Ordered: Office Visit Level 4 Est 11583 Well woman exam Normal exam. Pt. to schedule Dexa Scan. and Immunization boosters. Discussed that her pain could be associated with her previous pelvic injury. RTC/IC/ER if symptoms not improving or worsen. Ordered: Office Visit Level 4 Est [id number] Orders: HYDROcodone-acetaminophen, 1 tabs, Oral, q8hr, # 60 tabs, 0 Refill(s)
--- OUTSIDE RECORDS SUMMARY | 2017-04-15 08:06 | XMS REPORT | Referral Summary ---
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 Discharge Disposition: 01-Home or Self Care Attending Physician: Luis Angel Murillo JR, MD Admitting Physician: Luis Angel Murillo JR, MD Referring Physician: Juanjose Jaffe MD Vital Signs Most recent to 1 oldest [Reference Range]: Temperature Oral 36.9 degC [35.8-37.3 degC] (06/10/15 2:30 PM) Peripheral Pulse 72 bpm Rate [60-100 bpm] (06/10/15 2:30 PM) Respiratory Rate 16 br/min [14-20 br/min] (06/10/15 2:30 PM) Blood Pressure 140/80 mmHg [90-140/60-90 mmHg] (06/10/15 2:30 PM) Problem List Condition Effective Dates [...] MOUTH EVERY DAY, # 90 tabs, eRx: [facility] #[id number], TAKE ONE TABLET BY MOUTH EVERY DAY Start Date: 10/06/15 Status: Ordered cyclobenzaprine 10 mg oral tablet See Instructions, TAKE 1/2 TO 1 TABLET BY MOUTH EVERY 8 HOURS NEEDED, # 60 tabs, eRx: [facility] #[id number], TAKE 1/2 TO 1 TABLET BY MOUTH EVERY 8 HOURS NEEDED Start Date: 11/11/15 Status: Ordered Dulcolax Laxative 10 mg, Oral, Daily, as needed for constipation, 0 Refill(s) Start Date: 06/05/15 Status: Ordered haloperidol 1 mg oral tablet See Instructions, TAKE ONE TABLET BY MOUTH DAILY NEEDED, # 30 tabs, eRx: [facility] #[id number], TAKE ONE TABLET BY MOUTH DAILY NEEDED Start Date: 11/19/15 Status: Ordered haloperidol 1 mg oral tablet See Instructions, TAKE ONE TABLET BY MOUTH DAILY NEEDED, # 30 tabs, eRx: [facility] #[id number], TAKE ONE TABLET BY MOUTH DAILY NEEDED Start Date: 12/15/15 Status: Ordered lisinopril 10 mg oral tablet See Instructions, TAKE ONE TABLET BY MOUTH AT BEDTIME, # 90 tabs, 1 Refill(s), eRx: [facility] #[id number], TAKE ONE TABLET BY MOUTH AT BEDTIME Start Date: 06/06/15 Status: Ordered MiraLax oral powder for reconstitution See Instructions, DISSOLVE 17 GRAMS IN 8 OUNCES OF LIQUID AND DRINK ONCE DAILY, # 527 unknown unit, 2 Refill(s), eRx: [facility] #[id number], DISSOLVE 17 GRAMS IN 8 OUNCES OF LIQUID AND DRINK ONCE DAILY Start Date: 12/11/15 Status: Ordered [place] 5 mg-325 mg oral tablet 1-2 tabs, [...] MOUTH EVERY EVENING, # 90 tabs, eRx: [facility] #[id number], TAKE ONE TABLET BY MOUTH EVERY EVENING [...] Luis Angel Murillo JR, MD Date : 06/10/15 Follow Up With: Where: When: Juanjose Jaffe [address] [place] [address] Drive; [place] [address] Business (1) Within 3 to 5 days Comments: Follow Up With: Where: When: Luis Angel [facility]; [place], [place] [id number] Business (1) In 2 weeks 06/24/2015 Comments: Extracted from: Title: Office Visit Note Author: Luis Angel Murillo JR, MD Date: 06/10/15 Assessment/Plan Acquired stenosis of urethral meatus history of urethral stenosis and had cystoscopy and urethral dilatation done in 2000. Patient now has problems with completely emptying her urinary bladder has to strain to urinate and has a small slow stream. Scheduled for cystoscopy urethral calibration and dilatation if needed, hydrodistention of bladder and possible is SLT laser vaporization if she has chronic trigonitis or chronic interstitial cystitis. Procedures, risks, complications, and follow-up explained to patient with verbalize full understanding. Patient's needs to take all the medications is taking the night before the procedure, and nothing to eat or drink after midnight. Patient instructed torefrain from sexual intercoursefor 4-6 weeks, no heavy lifting over 15 pounds, and no long distance travel over 50 miles at one time. This was a 30 minute face to face visit with 1/2 of the visit devoted to counseling the patient. Ordered: Office Visit Level 4 New [id number]
--- OUTSIDE RECORDS SUMMARY | 2017-04-15 08:06 | XMS REPORT | Referral Summary ---
Author Author [facility] Organization [facility] Address Unknown Phone Unavailable Care Team Providers Care Information Systems Security Manager Name Role Phone Isabelle Jaffe Primary Care Physician [phone] Encounter Date(s): 07/04/15 - 07/04/15 [facility] [address] [place] Romero [address] Discharge Diagnosis: PURE HYPERCHOLESTEROLEMIA Discharge Diagnosis: UNSPECIFIED HYPOTHYROIDISM Discharge Disposition: 01-Home or Self Care Attending Physician: Juanjose Jaffe MD Admitting Physician: Juanjose Jaffe MD Vital Signs Most recent to 1 oldest [Reference Range]: Blood Pressure 130/60 mmHg [90-140/60-90 mmHg] (07/04/15 3:01 PM) Problem List Condition Effective Dates Status [...] MOUTH EVERY DAY, # 90 tabs, eRx: [facility] #[id number], TAKE ONE TABLET BY MOUTH EVERY DAY Start Date: 10/06/15 Status: Ordered cyclobenzaprine 10 mg oral tablet See Instructions, TAKE 1/2 TO 1 TABLET BY MOUTH EVERY 8 HOURS NEEDED, # 60 tabs, eRx: [facility] #[id number], TAKE 1/2 TO 1 TABLET BY MOUTH EVERY 8 HOURS NEEDED Start Date: 01/06/16 Status: Ordered Dulcolax Laxative 10 mg, Oral, Daily, as needed for constipation, 0 Refill(s) Start Date: 06/05/15 Status: Ordered haloperidol 1 mg oral tablet See Instructions, TAKE ONE TABLET BY MOUTH DAILY NEEDED, # 30 tabs, eRx: [facility] #[id number], TAKE ONE TABLET BY MOUTH DAILY NEEDED Start Date: 11/19/15 Status: Ordered haloperidol 1 mg oral tablet See Instructions, TAKE ONE TABLET BY MOUTH DAILY NEEDED, # 30 tabs, eRx: [facility] #[id number], TAKE ONE TABLET BY MOUTH DAILY NEEDED Start Date: 12/15/15 Status: Ordered lisinopril 10 mg oral tablet See Instructions, TAKE ONE TABLET BY MOUTH AT BEDTIME, # 90 tabs, eRx: [facility] #[id number], TAKE ONE TABLET BY MOUTH AT BEDTIME Start Date: 12/30/15 Status: Ordered MiraLax oral powder for reconstitution See Instructions, DISSOLVE 17 GRAMS IN 8 OUNCES OF LIQUID AND DRINK ONCE DAILY, # 527 unknown unit, 2 Refill(s), eRx: [facility] #[id number], DISSOLVE 17 GRAMS IN 8 OUNCES OF LIQUID AND DRINK ONCE DAILY Start Date: 12/11/15 Status: Ordered [place] 5 mg-325 mg oral tablet 1-2 tabs, [...] MOUTH EVERY EVENING, # 90 tabs, eRx: [facility] #[id number], TAKE ONE TABLET BY MOUTH EVERY EVENING Start Date: 01/06/16 Status: Ordered Results Hematology Most recent to 1 oldest [Reference Range]: WBC [4.8-10.8 5.8 10*3/uL 10*3/uL] (07/04/15 3:27 PM) RBC [4.00-5.20 4.50 10*6/uL 10*6/uL] (07/04/15 3:27 PM) Hgb [12.0-16.0 13.2 gm/dL gm/dL] (07/04/15 3:27 PM) Hct [37.0-47.0 %] 40.1 % (07/04/15 3:27 PM) MCV [82.0-99.0 fL] 89.1 fL (07/04/15 3:27 PM) MCH [27.0-32.0 pg] 29.3 pg (07/04/15 3:27 PM) MCHC [32.0-36.0 32.9 gm/dL gm/dL] (07/04/15 3:27 PM) RDW [11.5-14.5 %] 13.1 % (07/04/15 3:27 PM) Platelet [150-400 268 10*3/uL 10*3/uL] (07/04/15 3:27 PM) MPV [8.8-14.8 fL] 9.3 fL (07/04/15 3:27 PM) Immature 0.3 % Granulocytes (07/04/15 3:27 PM) [0.0-1.0 %] Neutrophils [51-75 48 % %] *LOW* (07/04/15 3:27 PM) Lymphocytes [20-46 26 % %] (07/04/15 3:27 PM) Monocytes [4-11 %] 19 % *HI* (07/04/15 3:27 PM) Eosinophils [0-4 %] 6 % *HI* (07/04/15 3:27 PM) Basophils [0-2 %] 1 % (07/04/15 3:27 PM) Neutro Absolute 2.74 10*3 [1.90-7.00 10*3] (07/04/15 3:27 PM) Lymph Absolute 1.49 10*3 [0.80-3.30 10*3] (07/04/15 3:27 PM) [place] Absolute 1.12 10*3 [0.30-1.00 10*3] *HI* (07/04/15 3:27 PM) Eos Absolute 0.34 10*3 [0.00-0.50 10*3] (07/04/15 3:27 PM) Baso Absolute 0.06 10*3 [0.00-0.20 10*3] (07/04/15 3:27 PM) Chemistry Most recent to 1 oldest [Reference Range]: Sodium Lvl [135-144 139 mEq/L mEq/L] (07/04/15 3:27 PM) Potassium Lvl 4.3 mEq/L [3.5-5.2 mEq/L] (07/04/15 3:27 PM) Chloride [99-111 106 mEq/L mEq/L] (07/04/15 3:27 PM) CO2 [22-31 mEq/L] 27 mEq/L (07/04/15 3:27 PM) AGAP [3-20] 6 (07/04/15 3:27 PM) BUN [10-20 mg/dL] 14 mg/dL (07/04/15 3:27 PM) Glucose Lvl [70-99 92 mg/dL mg/dL] (07/04/15 3:27 PM) Creatinine Lvl 1.13 mg/dL [0.57-1.11 mg/dL] *HI* (07/04/15 3:27 PM) eGFR [>60 mL/min] 47 mL/min 1 *ABN* (07/04/15 3:27 PM) Calcium Lvl 9.5 mg/dL [8.9-10.5 mg/dL] (07/04/15 3:27 PM) Albumin Lvl [3.4-4.8 4.1 gm/dL gm/dL] (07/04/15 3:27 PM) Total Protein 6.6 gm/dL [6.2-8.1 gm/dL] (07/04/15 3:27 PM) Globulin [1.8-4.0 2.5 gm/dL gm/dL] (07/04/15 3:27 PM) ALT [0-55 U/L] 20 U/L (07/04/15 3:27 PM) AST [5-34 U/L] 26 U/L (07/04/15 3:27 PM) Alk Phos [40-150 101 U/L U/L] (07/04/15 3:27 PM) Bili Total [0.2-1.2 0.5 mg/dL mg/dL] (07/04/15 3:27 PM) Chol [0-199 mg/dL] 162 mg/dL (07/04/15 3:27 PM) Trig [0-149 mg/dL] 143 mg/dL (07/04/15 3:27 PM) HDL [40-84 mg/dL] 43 mg/dL (07/04/15 3:27 PM) LDL [0-130 mg/dL] 90 mg/dL (07/04/15 3:27 PM) VLDL Cholesterol 29 mg/dL [0-28 mg/dL] *HI* (07/04/15 3:27 PM) Cardiac Risk 3.8 [0.0-5.0] (07/04/15 3:27 PM) TSH with Reflex Free 1.15 T4 [0.35-4.94] (07/04/15 3:27 PM) 1Result Comment: Multiply eGFR results by 1.21 for race. Urinalysis Most recent to 1 oldest [Reference Range]: UA Color [place] *ABN* (07/04/15 4:00 PM) UA Appear Clear (07/04/15 4:00 PM) UA pH [5.0-8.0] 6.5 (07/04/15 4:00 PM) UA Leuk Est Trace [Negative] *ABN* (07/04/15 4:00 PM) UA Nitrite Positive [Negative] *ABN* (07/04/15 4:00 PM) UA Protein Negative [Negative] (07/04/15 4:00 PM) UA Glucose Negative [Negative] (07/04/15 4:00 PM) UA Ketones Negative [Negative] (07/04/15 4:00 PM) UA Urobilinogen 1.0 mg/dL [<1.0 mg/dL] (07/04/15 4:00 PM) UA Bili [Negative] Negative (07/04/15 4:00 PM) UA Blood [Negative] Negative (07/04/15 4:00 PM) UA Spec Grav 1.015 [1.003-1.030] (07/04/15 4:00 PM) Type Voided (07/04/15 4:00 PM) UA WBC [0-4] 0-2 (07/04/15 4:00 PM) UA RBC [0-4] 0-4 (07/04/15 4:00 PM) Epithelial Cells 0-2 (07/04/15 4:00 PM) Microbiology Reports TEST: Urine Culture STATUS: Auth (Verified) BODY SITE: SOURCE: Urine COLLECTED DATE/TIME: 07/04/15 4:00 PM Urine Culture No growth Immunizations Vaccine Date Refusal Reason tetanus/diphth/pertuss (Tdap) [...] Author: Juanjose Jaffe MD Date: Family Medicine Cholesterol Cholesterol is a white, waxy, fat-like protein needed by your body in small amounts. The liver makes all the cholesterol you need. Cholesterol is carried from the liver by the blood through the blood vessels. Deposits of cholesterol ( plaque) may build up on blood vessel sheets. These make the arteries narrower and stiffer. Cholesterol plaques increase the risk for heart attack and stroke. You cannot feel your cholesterol level even if it is very high. The only way to know it is high is with a blood test. Once you know your cholesterol levels, you should keep a record of the test results. Work with your health care provider to keep your levels in the desired range. WHAT DO THE RESULTS MEAN? Total cholesterol is a rough measure of all the cholesterol in your blood. LDL is the so-called bad cholesterol. This is the type that deposits cholesterol in the sheets of the arteries. You want this level to be low. HDL is the good cholesterol because it cleans the arteries and carries the LDL away. You want this level to be high. Triglycerides are fat that the body can either burn for energy or store. High levels are closely linked to heart disease. WHAT ARE THE DESIRED LEVELS OF CHOLESTEROL? Total cholesterol below 200. LDL below 100 for people at risk, below 70 for those at very high risk. HDL above 50 is good, above 60 is best. Triglycerides below 150. HOW CAN I LOWER MY CHOLESTEROL? Diet. Follow your diet programs as directed by your health care provider. Choose fish or white meat chicken and turkey, roasted or baked. Limit fatty cuts of red meat, fried foods, and processed meats, such as sausage and lunch meats. Eat lots of fresh fruits and vegetables. Choose whole grains, beans, pasta, potatoes, and cereals. Use only small amounts of olive, corn, or canola oils. Avoid butter, mayonnaise, shortening, or palm kernel oils. Avoid foods with trans fats. Drink skim or nonfat milk and eat low-fat or nonfat yogurt and cheeses. Avoid whole milk, cream, ice cream, egg yolks, and full-fat cheeses. Healthy desserts include iza food cake, mavis snaps, animal crackers, hard candy, popsicles, and low-fat or nonfat frozen yogurt. Avoid pastries, cakes, pies, and cookies. Exercise. Follow your exercise programs as directed by your health care provider. A regular program helps decrease LDL and raise HDL. A regular program helps with weight control. Do things that increase your activity level like gardening, walking, or taking the stairs. Ask your health care provider about how you can be more active in your daily life. Medicine. Take medicine as directed by your health care provider. Medicine may be prescribed by your health care provider to help lower cholesterol and decrease the risk for heart disease. If you have several risk factors, you may need medicine even if your levels are normal. Document Released: 08/02/2002 Document Revised: 11/12/2014 Document Reviewed: [employer] Patient Information 2015 [employer]. This information is not intended to replace advice given to you by your health care provider. Make sure you discuss any questions you have with your health care provider. No follow up information was provided. Extracted from: Title: Office Visit Note Author: Juanjose Jaffe MD Date: 07/04/15 Assessment/Plan Benign essential hypertension This issue is stable and appropriate refills, lab, and f/u have been discussed. The patient reports their blood pressure has been stable at home and is not having any significant or related problems. There has been no chest pain, chest pressure, soa/serrano. Cellulitis The patient's issue is nearly or completely resolved. There is no further issues or testing desired by them at this time. Closed fracture of distal phalanx of second finger of right hand with routine healing The patient's issue is nearly or completely resolved. There is no further issues or testing desired by them at this time. Constipation This issue is stable and appropriate refills, lab, and f/u have been discussed. Lower urinary tract symptoms (LUTS) The patient's issue is nearly or completely resolved. There is no further issues or testing desired by them at this time. Had dilation and is pleased. Schizoaffective disorder This issue is stable and appropriate refills, lab, and f/u have been discussed.
--- OUTSIDE RECORDS SUMMARY | 2017-04-15 08:06 | XMS REPORT | Referral Summary ---
Author Author [facility] Organization [facility] Address Unknown Phone Unavailable Care Team Providers Care Rod And Tube Straightener Name Role Phone Isabelle Jaffe Primary Care Physician [phone] Encounter VC Date(s): 07/15/15 - 07/15/15 [facility] [address] [place] [address] [place] [id number] Discharge Diagnosis: Chronic trigonitis. Discharge Disposition: 01-Home or Self Care Attending Physician: Luis Angel Murillo JR, MD Admitting Physician: Luis Angel Murillo JR, MD Referring Physician: Juanjose Jaffe MD Vital Signs Most recent to 1 oldest [Reference Range]: Peripheral Pulse 83 bpm Rate [60-100 bpm] (07/15/15 1:43 PM) Blood Pressure 142/78 mmHg [90-140/60-90 mmHg] *HI* (07/15/15 1:43 PM) Problem List Condition Effective Dates Status [...] MOUTH EVERY DAY, # 90 tabs, eRx: [facility] #[id number], TAKE ONE TABLET BY MOUTH EVERY DAY Start Date: 01/19/16 Status: Ordered cyclobenzaprine 10 mg oral tablet See Instructions, TAKE 1/2 TO 1 TABLET BY MOUTH EVERY 8 HOURS NEEDED, # 60 tabs, eRx: [facility] #[id number], TAKE 1/2 TO 1 TABLET BY MOUTH EVERY 8 HOURS NEEDED Start Date: 01/06/16 Status: Ordered Dulcolax Laxative 10 mg, Oral, Daily, as needed for constipation, 0 Refill(s) Start Date: 06/05/15 Status: Ordered haloperidol 1 mg oral tablet See Instructions, TAKE ONE TABLET BY MOUTH DAILY NEEDED, # 30 tabs, eRx: [facility] #[id number], TAKE ONE TABLET BY MOUTH DAILY NEEDED Start Date: 01/16/16 Status: Ordered lisinopril 10 mg oral tablet See Instructions, TAKE ONE TABLET BY MOUTH AT BEDTIME, # 90 tabs, eRx: [facility] #[id number], TAKE ONE TABLET BY MOUTH AT BEDTIME Start Date: 12/30/15 Status: Ordered MiraLax oral powder for reconstitution See Instructions, DISSOLVE 17 GRAMS IN 8 OUNCES OF LIQUID AND DRINK ONCE DAILY, # 527 unknown unit, 2 Refill(s), eRx: [facility] #[id number], DISSOLVE 17 GRAMS IN 8 OUNCES OF LIQUID AND DRINK ONCE DAILY Start Date: 12/11/15 Status: Ordered [place] 5 mg-325 mg oral tablet 1-2 tabs, Oral, q8hr, MUST LAST 30 DAYS, # 60 tabs, 0 Refill(s) Start Date: 01/21/16 Status: Ordered Physical therapy Physical therapy, See Instructions, olesya and treat as indicated for back pain., # 1 Each, 0 Refill(s) Start Date: 01/29/15 Status: Ordered Zocor 10 mg oral tablet See Instructions, TAKE ONE TABLET BY MOUTH EVERY EVENING, # 90 tabs, eRx: [facility] #[id number], TAKE ONE TABLET BY MOUTH EVERY EVENING [...] Luis Angel Murillo JR, MD Date : 07/15/15 Follow Up With: Where: When: Juanjose Rocio[address]; [place] [address] Business (1) Within 3 to 5 days Comments: Follow Up With: Where: When: Luis Angel K[address]; [place] [address] Business (1) In 1 month 08/15/2015 Comments: Extracted from: Title: Office Visit Note Author: Luis Angel Murillo JR, MD Date: 07/15/15 Assessment/Plan Chronic trigonitis. cystocele and rectocele. Patient is voiding well there's to mild discomfort at the bladder area when I did hear bimanual pelvic examination. Continue taking it easy no ability or straining for the next 2 more weeks hold off sexual intercourse, and no long distance driving. I would like to see her again in 4 weeks. In about 8-10 weeks from his last surgery and repair this patient to see Dr. Rekha Gutierres the [employer] telegraph dispatcher next door with regards to the cystocele and rectocele. Ordered: Office Visit Level 3 Est [id number]
--- OUTSIDE RECORDS SUMMARY | 2017-04-15 08:06 | XMS REPORT | Referral Summary ---
Author Author [facility] Organization [facility] Address Unknown Phone Unavailable Care Team Providers Care Food Photographer Name Role Phone Isabelle Jaffe Primary Care Physician [phone] Encounter VC Date(s): 09/15/16 - 09/15/16 [facility] [address] [place] [id number] Discharge Diagnosis: Chronic neck pain Discharge Diagnosis: Menopausal state Discharge Diagnosis: Benign essential hypertension Discharge Diagnosis: Constipation Discharge Diagnosis: GERD without esophagitis Discharge Diagnosis: Back pain, chronic Discharge Diagnosis: Chronic kidney disease (CKD) stage G1/A1, glomerular filtration rate (GFR) equal to or greater than 90 mL/min/1.73 square meter and albuminuria creatinine ratio less than 30 mg/g Discharge Diagnosis: Schizoaffective disorder Discharge Diagnosis: Acute URI Discharge Disposition: 01-Home or Self Care Attending Physician: Juanjose Jaffe MD Admitting Physician: Juanjose Jaffe MD Vital Signs Most recent to 1 oldest [Reference Range]: Blood Pressure 120/80 mmHg [90-140/60-90 mmHg] (09/15/16 8:40 AM) Problem List Condition Effective Dates Status Health Status Informant Arthralgia Active TMJ(Confirmed) Benign essential Active hypertension(Confirm ed) Back pain, Active chronic(Confirmed) Chronic kidney Active disease (CKD) stage G1/A1, glomerular filtration rate (GFR) equal to or greater than 90 mL/min/1.73 square meter and albuminuria creatinine ratio less than 30 mg/g(Confirmed) Chronic neck Active pain(Confirmed) Constipation(Confirm Active ed) Depression(Confirmed Active ) GERD without Active esophagitis(Confirme d) Lower urinary tract Active symptoms (LUTS)(Confirmed) Menopausal Active state(Confirmed) Schizoaffective Active disorder(Confirmed) Stress Active incontinence(Confirm ed) TMJ Active syndrome(Confirmed) Allergies, Adverse Reactions, Alerts No Known Medication Allergies Medications Aspirin Low Dose 81 mg, Oral, Daily, 0 Refill(s) Start Date: 09/15/16 Status: Ordered cyclobenzaprine 10 mg oral tablet See Instructions, TAKE 1/2 TO 1 TABLET BY MOUTH EVERY 8 HOURS NEEDED, # 60 tabs, 0 Refill(s), Pharmacy: [facility] #[id number], TAKE 1/2 TO 1 TABLET BY MOUTH EVERY 8 HOURS NEEDED Start Date: 09/15/16 Status: Ordered Dulcolax Laxative 10 mg, Oral, Daily, as needed for constipation, 0 Refill(s) Start Date: 06/05/15 Status: Ordered haloperidol 1 mg oral tablet See Instructions, TAKE ONE TABLET BY MOUTH DAILY NEEDED, # 30 tabs, 0 Refill( s), Pharmacy: [facility] #[id number], TAKE ONE TABLET BY MOUTH DAILY NEEDED Start Date: 09/15/16 Status: Ordered lisinopril 10 mg oral tablet See Instructions, TAKE ONE TABLET BY MOUTH AT BEDTIME, # 90 tabs, 0 Refill(s), Pharmacy: [facility] #[id number], TAKE ONE TABLET BY MOUTH AT BEDTIME Start Date: 09/15/16 Status: Ordered Lovelady 5 mg-325 mg oral tablet 1-2 tabs, Oral, q8hr, MUST LAST 30 days, May fill 09/24/16, # 60 tabs, 0 Refill(s ) Start Date: 09/15/16 Status: Ordered Physical therapy Physical therapy, See Instructions, olesya and treat as indicated for back pain., # 1 Each, 0 Refill(s) Start Date: 01/29/15 Status: Ordered polyethylene glycol 3350 oral powder for reconstitution See Instructions, DISSOLVE 17 GRAMS IN 8 OUNCES OF LIQUID AND DRINK ONCE DAILY, # 527 unknown unit, eRx: [facility] #[id number], DISSOLVE 17 GRAMS IN 8 OUNCES OF LIQUID AND DRINK ONCE DAILY Start Date: 08/25/16 Status: Ordered predniSONE 20 mg oral tablet 20 mg 1 tabs, Oral, Daily, X 5 days, # 5 tabs, 0 Refill(s), Pharmacy: [facility] #[id number], 1 tabs Oral Daily,x5 days Start Date: 09/15/16 Stop Date: 09/20/16 Status: Ordered ranitidine 300 mg oral tablet 300 mg 1 tabs, Oral, Bedtime (once a day), # 90 tabs, 0 Refill(s), Pharmacy: [facility] #[id number], 1 tabs Oral Bedtime (once a day),x90 days Start Date: 09/15/16 Stop Date: 12/14/16 Status: Ordered Results No data available for [...] Patient Education Author: Juanjose Jaffe MD Date: Musculoskeletal Back Pain, Adult Back pain is very common in adults.The cause of back pain is rarely dangerous and the pain often gets better over time.The cause of your back pain may not be known. Some common causes of back pain include: Strain of the muscles or ligaments supporting the spine. Wear and tear (degeneration) of the spinal disks. Arthritis. Direct injury to the back. For many people, back pain may return. Since back pain is rarely dangerous, most people can learn to manage this condition on their own. HOME CARE INSTRUCTIONS Watch your back pain for any changes. The following actions may help to lessen any discomfort you are feeling: Remain active. It is stressful on your back to sit or fine wire drawer one place for long periods of time. Do not sit, drive, or fine wire drawer one place for more than 30 minutes at a time. Take short walks on even surfaces as soon as you are able.Try to increase the length of time you walk each day. Exercise regularly as directed by your health care provider. Exercise helps your back heal faster. It also helps avoid future injury by keeping your muscles strong and flexible. Do not stay in bed.Resting more than 12 days can delay your recovery. Pay attention to your body when you bend and lift. The most comfortable positions are those that put less stress on your recovering back. Always use proper lifting techniques, including: Bending your knees. Keeping the load close to your body. Avoiding twisting. Find a comfortable position to sleep. Use a firm mattress and lie on your side with your knees slightly bent. If you lie on your back, put a pillow under your knees. Avoid feeling anxious or stressed.Stress increases muscle tension and can worsen back pain.It is important to recognize when you are anxious or stressed and learn ways to manage it, such as with exercise. Take medicines only as directed by your health care provider. Over-the- counter medicines to reduce pain and inflammation are often the most helpful. Your health care provider may prescribe muscle relaxant drugs.These medicines help dull your pain so you can more quickly return to your normal activities and healthy exercise. Apply ice to the injured area: Put ice in a plastic bag. Place a towel between your skin and the bag. Leave the ice on for 20 minutes, 23 times a day for the first 23 days. After that, ice and heat may be alternated to reduce pain and spasms. Maintain a healthy weight. Excess weight puts extra stress on your back and makes it difficult to maintain good posture. SEEK MEDICAL CARE IF: You have pain that is not relieved with rest or medicine. You have increasing pain going down into the legs or buttocks. You have pain that does not improve in one week. You have night pain. You lose weight. You have a fever or chills. SEEK IMMEDIATE MEDICAL CARE IF: You develop new bowel or bladder control problems. You have unusual weakness or numbness in your arms or legs. You develop nausea or vomiting. You develop abdominal pain. You feel faint. This information is not intended to replace advice given to you by your health care provider. Make sure you discuss any questions you have with your health care provider. Document Released: 11/07/2006 Document Revised: 11/28/2015 Document Reviewed: [employer] Interactive Patient Education 2016 [employer] No follow up information was provided. Extracted from: Title: Office Visit Note Author: Juanjose Jaffe MD Date: 09/15/16 Assessment/Plan Acute URI Zpack and prednisone 20mg po daily for five days was given. Back pain, chronic This issue was reviewed, appears stable, and current therapy continued except as mentioned. Appropriate lab was reviewed from the most recent appropriate entry and lab was ordered if needed in the cpoe/nursing orders, and follow up recommended generally in 90 days and no later then six months. Lovelady refilled. Benign essential hypertension This issue was reviewed, [...] no chest pain, chest pressure, soa/serrano. Chronic kidney disease (CKD) stage G1/A1, glomerular [...] days and no later then six months. Limit nsaids. Chronic neck pain This issue was reviewed, appears stable, and current therapy continued except as mentioned. Appropriate lab was reviewed from the most recent appropriate entry and lab was ordered if needed in the cpoe/nursing orders, and follow up recommended generally in 90 days and no later then six months. Lovelady refilled. Constipation The patient's issue is nearly or completely resolved. There is no further issues or testing desired by them at this time. Declines meds. GERD without esophagitis This issue was reviewed, appears stable, and current therapy continued except as mentioned. Appropriate lab was reviewed from the most recent appropriate entry and lab was ordered if needed in the cpoe/nursing orders, and follow up recommended generally in 90 days and no later then six months. Stable on zantac. Menopausal state We discussed several options for treatment for this condition. The patient declined any changes or other treatments at this time. Had questions about estrogen but declines tx at this time. Schizoaffective disorder This issue was reviewed, appears stable, and current therapy continued except as mentioned. Appropriate lab was reviewed from the most recent appropriate entry and lab was ordered if needed in the cpoe/nursing orders, and follow up recommended generally in 90 days and no later then six months. Stable on haldol.
--- NOTE | 2017-04-15 08:10 | NUR ---
PHYSICIAN VISIT DR. CATHERINE IN TO SEE PATIENT.
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
--- NOTE | 2017-04-15 08:25 | NUR ---
X-RAY X-RAY AT BEDSIDE TO PERFORM PORTABLE X-RAYS.
--- OUTSIDE RECORDS SUMMARY | 2017-04-15 08:29 | XMS REPORT | Continuity of Care Document ---
Author Author [facility] Organization [facility] Address Unknown Phone Unavailable Allergies Medications Problems Procedures Results Encounters ACCT No. Visit Date/Time Discharge Status Pt. Type Provider Facility Loc./Unit Complaint [id number] 01/16/2014 13:29:00 01/16/2014 23 :59:59 CLS Outpatient
[2017-04-15] MEDS ORDERED: OMEP-122 PO (08:37)
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
--- NOTE | 2017-04-15 08:51 | DI ---
Indication: ITS.REASON: pain, injury PROCEDURE: ANKLE RIGHT 3 VIEW: Encounter: Initial Comparison: None Findings: There is no acute fracture, dislocation or malalignment identified. There is a well-corticated ossicle adjacent to the talar neck which is probably due to old rather than acute trauma. Impression: No acute osseous abnormality. .
[2017-04-15] MEDS: ACETAMINOPHEN 500 MG TABLET PO ONE (09:04)
[2017-04-15] MEDS ORDERED: HYDR-4078 PO (09:04)
[2017-04-15 09:30] VITALS: BP 139/65; PULSE 66; RESP 16; O2SAT 95
== END 2017-04-15 09:30 | disposition home or self-care (01) ==
LOC: ED 08:01
DX: S92.424A Nondisplaced fracture of distal phalanx of right great toe, initial encounter for closed fracture (principal); S92.511A Displaced fracture of proximal phalanx of right lesser toe(s), initial encounter for closed fracture; S92.344A Nondisplaced fracture of fourth metatarsal bone, right foot, initial encounter for closed fracture; V89.0XXA Person injured in unspecified motor-vehicle accident, nontraffic, initial encounter; Y93.89 Activity, other specified; Y92.008 Other place in unspecified non-institutional (private) residence as the place of occurrence of the external cause; Y99.8 Other external cause status